=== PATIENT | female | born 1945 | race Caucasian/White ===

== ENCOUNTER → 2018-01-22 08:42 | Outpatient (CLI) | payer MEDICARE, OTHER, SELFPAY ==
[2018-01-22 10:33] LABS: Cholesterol 225 mg/dL (200); High Density Lipoprotein 57 mg/dL; Thyroid Stim Hormone (TSH) 1.51 uIU/mL (0.358-3.74); Triglycerides 139 mg/dL; Very Low Density Lipoprotein 28 mg/dL (5-40)
[2018-01-23 13:12] LABS: AST(SGOT) 21 U/L (15-37); Alanine Aminotransfer ALT/SGPT 24 U/L (13-56); Alkaline Phosphatase 79 U/L (45-117); Globulin 3.4 g/dL (2.2-4.2); Protein, Total 7.4 g/dL (6.4-8.2)
== END ==
PROVIDERS: Family Provider Family Medicine; PCP Family Medicine; Visit Provider Family Medicine
DX: E78.5 Hyperlipidemia, unspecified (principal)
CPT/HCPCS: 36415; 80061; 80076; 84443

== ENCOUNTER → 2018-03-05 16:52 | Outpatient (CLI) | payer MEDICARE, OTHER, SELFPAY ==
--- NOTE | 2018-03-05 16:55 | RAD_ITS ---
STUDY: X-RAY CHEST REASON FOR EXAM: Female, 72 years old. Uterine neoplasm TECHNIQUE: PA and lateral views of the chest. COMPARISON: None. FINDINGS: Postoperative changes of the left breast. There is hyperinflation of the lungs consistent with chronic obstructive lung disease (COPD). There is no demonstrated pleural abnormality. Normal size heart. Normal mediastinum and jermaine. Normal visualized pulmonary arteries. Normal visualized aortic arch and descending thoracic aorta. There is demineralization of the osseous structures. Normal visualized ribs, clavicles, and shoulders. There is no demonstrated abnormality of the visualized soft tissue structures of the upper abdomen. RAD/Chest PA and Lateral IMPRESSION: Degenerative changes, as described above. No demonstrated acute cardiopulmonary process. Electronically Signed: Srinivas Munoz MD at 21:00 EDT , Service support ,
== END ==
PROVIDERS: Family Provider Family Medicine; PCP Family Medicine; Visit Provider Obstetrics & Gynecology
DX: C55 Malignant neoplasm of uterus, part unspecified (principal); C50.919 Malignant neoplasm of unspecified site of unspecified female breast
CPT/HCPCS: 71046

== ENCOUNTER 2018-06-04 07:52 | Outpatient (RCR) | payer MEDICARE, OTHER, SELFPAY ==
--- NOTE | 2018-06-10 08:58 | HP.OTEVAL ---
Patient's Visit Information CHANELLE IGLESIAS is a 72 year old F, referred to Occupational Therapy by Mariama Patel, with a diagnosis of Primary Osteoarthritis, RT and LT hand. Date of Evaluation: 06/04/18 Occupational Therapist: Symone Chapman, OTR/L, CHT - Subjective Subjective: pt. states that she is here for eval for OA of both the L and R hands, and wants any recommendations for OA. Pt. states that she has been modifying tasks as needed, in order to be functional in her BADL's and IADL's, however, she wanted to make sure that there were not other options that she has not considered yet. - Pain R and L hands 2 Pain Intensity Range: 2, 3, 4, 5 - Objective Objective/Observation: pt. demo arthritis over the knuckles of each jt. of both the L and R hands. - ROM ROM Comments: R Index: MP, 0/84, PIP: 0/87, DIP: 0/28. R 3rd digit: MP: 0/90, PIP: 0/100, DIP: 0/54. R 4th digit: MP: 0/80, PIP: 0/110, DIP: 0/25. R 5th digit: MP: 0/90, PIP: 0/74, DIP: 0/35. R Thumb: MP: 0/37, IP: 0/69. L Index: MP: 0/73, PIP: 0/104, DIP: 0/53. L 3rd digit: MP: 0/77, PIP: 0/95, DIP: 0/60. L 4th digit: MP 0/87, PIP: 0/69, DIP: 0/15. L 5th digit: MP 0/89, PIP: 0/69, DIP: DIP: 0/4. L Thumb: MP: 0/38, IP: 0/45 - Strength Binder Folder Operator: 45 # of R and 39 # in L Lateral Pinch: 14 # in R and 13 # in L Tripod Pinch: 15 # in R and 15 # in L - DASH-Disabilities of Arm, Shoulder& Hand DASH Sum: 44 - Hand/Wrist Evaluation Total Score of Pain & Functional Sections: 24 - Goals Goal:: Patient will report recognizing when tasks will cause a significant increase in pain, in order to manage workload to functionally engage in other BADL?s and IADL?s with a tolerable pain level. Goal:: Patient will demo understanding of joint protection and ECM recommendations for increase I with BADL?s and IADL?s. Goal:: Patient will demo follow through with the use of home modalities for pain management for increased ability to complete BADL's and IADL's. Goal:: Patient will demo understanding of the ring splints for support when completing BADL?s and IADL?s. - Rehabilitation General Assessment: Patient presents with Primary Osteoarthritis of the RT and LT hands. Patient demo decreased ROM, strength, increased pain and decreased ability to complete BADL's and IADL's. Patient unsure at this time if she wants to recieve tx, d/t pt. modifying functional tasks as needed within her daily life. Today, OT educated pt. about joint protection and ECM that she can follow in her daily life. Additionally, OT educated pt. about ring supports that pt. can wear for lateral support. Following the education,OT provided PB ti increase circulation and decrease pain. Following the PB, OT provided MT to decrease pain/stiffness. Rehabilitation Potential: Good - Anticipated Interventions Anticipated Interventions: A/AAROM/PROM, Strengthening, Triggerpoint Release, Modalities, Orthoses, Joint Protection/Energy Conservation, Ergonomic Education, ADL Training, Home Program - Visit Plan Frequency: PRN within the next month Duration: PRN within the next month TEXT: Thank you for the opportunity to evaluate your patient. For Medicare and Medicare HMO plans, please review the plan of care and approve it. It will need to be FAXED BACK to us at [phone] for Medicare purposes. Please let me know if there are questions or concerns regarding this plan of care. Physician Signature: Date:
--- NOTE | 2018-11-24 08:31 | HP.OT.NRP ---
HP - Discharge Summary - Patient Information CHANELLE IGLESIAS was seen in my office for initial evaluation on 06/04/18. The following Plan of Care was established for this patient: Initial Frequency: PRN within the next month Initial Duration: PRN within the next month - Anticipated Interventions Anticipated Interventions: A/AAROM/PROM, Strengthening, Triggerpoint Release, Modalities, Orthoses, Joint Protection/Energy Conservation, Ergonomic Education, ADL Training, Home Program This patient was last seen in our office 06/04/19. Pertinent comments regarding their Occupational therapy will appear below: pt was seen for inital eval only. Due to time-lapse in services pt D/C at this time. At this point I will be discontinuing this patient from occupational therapy. I would be happy to see this patient again in the future if found appropriate by the physician. Thank you! Symone Chapman, OTR/L, CHT
== END 2018-06-04 19:00 | disposition home or self-care (01) ==
LOC: OT 07:52
PROVIDERS: Family Provider Family Medicine; PCP Family Medicine; Referring Provider Physician Assistant; Visit Provider Physician Assistant
DX: M19.041 Primary osteoarthritis, right hand (principal); M19.042 Primary osteoarthritis, left hand
CPT/HCPCS: 97140; 97166

== ENCOUNTER → 2019-01-25 | Outpatient (CLI) | payer MEDICARE, OTHER, SELFPAY ==
[2018-09-02 11:58] VITALS: BMI 25.4
[2019-01-25 12:59] LABS: Cholesterol 194 mg/dL (200); High Density Lipoprotein 51 mg/dL; Triglycerides 203 mg/dL; Very Low Density Lipoprotein 41 mg/dL (5-40)
== END | disposition home or self-care (01) ==
LOC: BFHLAB 09:24
PROVIDERS: Family Provider Family Medicine; PCP Family Medicine; Visit Provider Family Medicine
DX: E78.5 Hyperlipidemia, unspecified (principal)
CPT/HCPCS: 36415; 80061; 84443

== ENCOUNTER → 2019-07-29 10:03 | Outpatient (CLI) | payer MEDICARE, OTHER, SELFPAY ==
[2018-09-02 11:58] VITALS: BMI 25.4
--- NOTE | 2019-07-29 10:35 | RAD_ITS ---
STUDY: X-RAY CHEST REASON FOR EXAM: Female, 73 years old. Dry cough times several months, history of breast cancer TECHNIQUE: PA and lateral views of the chest. COMPARISON: Prior study of 03/05/2018 FINDINGS: The lungs are clear and expanded. There is no demonstrated pleural abnormality. Normal size heart. Normal mediastinum and jermaine. Normal visualized pulmonary arteries. There are calcified plaques of the aortic arch. Normal visualized thoracic spine. Normal visualized ribs, clavicles, and shoulders. Surgical clips are seen in the left breast. RAD/Chest PA and Lateral IMPRESSION: Calcified plaques in the aortic arch. Surgical clips seen in the left breast. No acute cardiopulmonary disease process is seen. Chest findings are stable in the interval. Electronically Signed: Gustavo Diaz MD at 21:34 EST , Service support ,
== END ==
PROVIDERS: Family Provider Family Medicine; PCP Family Medicine; Referring Provider Family Medicine; Visit Provider Family Medicine
DX: R05 Cough (principal)
CPT/HCPCS: 71046

== ENCOUNTER → 2020-01-17 | Outpatient (CLI) | payer MEDICARE, OTHER, SELFPAY ==
[2019-09-16 13:33] VITALS: BMI 25.4
--- NOTE | 2020-01-17 10:20 | US_ITS ---
STUDY: ABDOMINAL ULTRASOUND REASON FOR EXAM: Female, 74 years old. LUQ PAIN/ CHEST PAIN TECHNIQUE: Transabdominal ultrasound was performed with real-time and static marks scale imaging. TECHNICAL QUALITY: Adequate. COMPARISON: None. FINDINGS: Liver: The liver measures 12.8 cm. There is normal echogenicity of the liver. The bile ducts are within normal limits. There is hepatic color flow. The direction of portal flow is hepatopetal. There is no demonstrated mass lesion. Portal vein measurement: Gallbladder: The patient is status post cholecystectomy. Common Bile Duct (C.B.D.): The common bile duct measures 5 mm. Pancreas: Normal size of the head, body and tail of the pancreas. There is normal echogenicity of the pancreas. There is no demonstrated pancreatic mass or cyst. Spleen: Normal size of the spleen. The spleen measures 7.7 cm x 3.4 cm x 3.6 cm. Right Kidney: Normal size of the right kidney. The right kidney measures 9.3 cm x 4.7 cm x 3.6 cm. Normal renal cortex. The right cortex measures 1.4 cm. There is no demonstrated renal mass or cyst. There is no right hydronephrosis. Left Kidney: Normal size of the left kidney. The left kidney measures 9.4 cm x 4.3 cm x 4.1 cm. Normal renal cortex. The left cortex measures 1.5 cm. There is no demonstrated renal mass or cyst. There is no left hydronephrosis. Aorta: Unremarkable I.V.C.: The IVC is patent. There is no ascites. US/Abdomen Complete IMPRESSION: Normal abdominal ultrasound examination. The patient is status post cholecystectomy. Electronically Signed: Satnam Chaves, at 15:02 EDT , Service support ,
== END | disposition home or self-care (01) ==
LOC: US 10:17
PROVIDERS: PCP Family Medicine; Referring Provider Family Medicine; Visit Provider Family Medicine
DX: R10.12 Left upper quadrant pain (principal); R07.89 Other chest pain
CPT/HCPCS: 76700

== ENCOUNTER → 2020-01-19 12:13 | Outpatient (CLI) | payer MEDICARE, OTHER, SELFPAY ==
[2020-01-19 11:26] VITALS: BMI 23.9
[2020-01-19 13:44] LABS: AST(SGOT) 16 U/L (15-37); Alanine Aminotransfer ALT/SGPT 20 U/L (13-56); Alkaline Phosphatase 85 U/L (45-117); Bilirubin, Direct 0.11 mg/dL (0.00-0.30); Cholesterol 224 mg/dL (200); Globulin 3.8 g/dL (2.2-4.2); High Density Lipoprotein 51 mg/dL; Protein, Total 7.8 g/dL (6.4-8.2); Triglycerides 311 mg/dL; Very Low Density Lipoprotein 62 mg/dL (5-40)
== END ==
PROVIDERS: PCP Family Medicine; Visit Provider Internal Medicine Cardiovascular Disease
DX: E78.00 Pure hypercholesterolemia, unspecified (principal); R07.9 Chest pain, unspecified; E78.5 Hyperlipidemia, unspecified; M81.0 Age-related osteoporosis without current pathological fracture; C50.919 Malignant neoplasm of unspecified site of unspecified female breast; C55 Malignant neoplasm of uterus, part unspecified
CPT/HCPCS: 36415; 80061; 80076

== ENCOUNTER → 2020-01-24 06:23 | Outpatient (CLI) | payer MEDICARE, OTHER, SELFPAY ==
[2020-01-19 11:26] VITALS: BMI 23.9
--- NOTE | 2020-01-24 06:24 | ECHOD_ITS ---
Reason For Study: CP Procedure This was a 2D Doppler, Color Flow transthoracic echocardiogram. Exam performed in department. Left Ventricle Normal LV size. Left ventricular systolic function is normal. The estimated ejection fraction is 60 %. Stage 2 diastolic dysfunction. No regional wall motion abnormalities noted. Right Ventricle Normal RV size. Normal systolic function. Atria Normal left atrium. Normal right atrium. Mitral Valve Normal mitral valve. Mild (1+) eccentric mitral valve insufficiency. Tricuspid Valve Normal tricuspid valve. Mild (1+) tricuspid valve insufficiency. Pulmonary artery systolic pressure is 24 mmHg. Aortic Valve Normal aortic valve. Trisinus/trileaflet aortic valve. Pulmonic Valve Normal pulmonic valve. Great Vessels Normal aortic root. The pulmonary artery is normal size. Normal inferior vena cava. Pericardium/Pleural No pericardial effusion. MMode/2D Measurements & Calculations LVIDd: 4.1 cm IVSd: 0.92 cm LA dimension: 3.3 cm LVIDs: 2.3 cm LVPWd: 0.88 cm RVDd: 3.2 cm FS: 44.0 % LAV(MOD-bp): 41.7 ml LA A4 area: 16.2 cm2 RA A4 area: 10.7 cm2 LAV(MOD-bp) Indexed: 24.2 ml/m2 LAV(MOD-sp2): 36.2 ml LAV(MOD-sp4): 44.3 ml Time Measurements MV dec time: 0.22 sec Doppler Measurements & Calculations MV E max jose enrique: 60.4 cm/sec Lat Peak E' Jose Enrique: 5.7 cm/sec Med Peak E' Jose Enrique: 4.8 cm/sec MV A max jose enrique: 77.8 cm/sec E/E' lat: 10.6 E/E' med: 12.5 MV E/A: 0.78 MV V2 max: 82.8 cm/sec MV P1/2t max jose enrique: 55.0 cm/sec Ao V2 max: 134.9 cm/sec MV max P.7 mmHg MV P1/2t: 51.9 msec Ao max P.3 mmHg MV V2 mean: 41.1 cm/sec MV dec slope: 310.6 cm/sec2 MV mean P.82 mmHg MVA(P1/2t): 4.2 cm2 MV V2 VTI: 16.6 cm LV V1 max: 84.6 cm/sec MR max jose enrique: 507.3 cm/sec PA V2 max: 99.2 cm/sec LV V1 max P.9 mmHg MR max P.9 mmHg TR max jose enrique: 228.6 cm/sec TR max P.9 mmHg Interpretation Summary Normal LV size. Left ventricular systolic function is normal. The estimated ejection fraction is 60 %. Stage 2 diastolic dysfunction. Mild (1+) eccentric mitral valve insufficiency. Pulmonary artery systolic pressure is 24 mmHg. Ordering Physician: Eleuterio Cano Referring Physician: Tommie Crews Performed By: Jesse Luke RCS
--- NOTE | 2020-01-24 11:18 | STRESSREP_ITS ---
Stress Test Report 74-year-old lady with a history of chest pain status post breast carcinoma. Stress protocol: Resting EKG demonstrates sinus rhythm with a rate of 75 bpm normal intervals are noted resting blood pressure is 112/68 mmHg. The patient exercised according to regular Sam protocol for a total duration of 9 minutes. Patient completed stage III of the Sam protocol. The maximum heart rate was 166 bpm which was 112% of maximum predicted heart rate the maximum workload was 10.1 metabolic equivalents. Patient maintained sinus rhythm throughout the recording with occasional premature ventricular complexes noted. The test was terminated due to the target heart rate being achieved. There was mild chest discomfort noted. At rest and during peak exercise there were no ST or T wave changes noted to suggest ischemia. The maximum blood pressure was 160/60 mmHg with a rate- pressure product was 26,500. Myocardial perfusion protocol. 11.0 mCi of technetium 99m sestamibi was injected at rest. The patient exercised according to regular Sam protocol for 9 minutes at peak exercise 33.0 mCi of technetium 99m sestamibi was injected stress images were obtained stress and rest images were reconstructed and compared in the short axis vertical long horizontal long axis. Gated images were also obtained per Perfusion SPECT analysis: Review of the stress images demonstrate normal uptake of tracer noted in all areas of the myocardium the resting images similarly demonstrate normal uptake of tracer noted in all areas of the myocardium. No reversibility is noted suggest ischemia no previous infarct is noted. Gated SPECT analysis: The gated ejection fraction is 62%. Occlusion: Normal exercise myocardial perfusion stress test at a high workload. Preserved ejection fraction.
== END ==
PROVIDERS: PCP Family Medicine; Referring Provider Internal Medicine Cardiovascular Disease; Visit Provider Internal Medicine Cardiovascular Disease
DX: R07.9 Chest pain, unspecified (principal); I25.10 Atherosclerotic heart disease of native coronary artery without angina pectoris
CPT/HCPCS: 78452; 93017; 93306; A9500

== ENCOUNTER → 2020-02-17 08:52 | Outpatient (CLI) | payer MEDICARE, OTHER, SELFPAY ==
[2020-01-19 11:26] VITALS: BMI 23.9
[2020-02-17 12:52] LABS: Absolute Lymphocyte Count 1.89 X10^3/uL (0.83-4.51); Absolute Neutrophil Count 2.6 X10^3/uL (2.0-7.7); Basophil# 0.05 X10^3/uL; Eosinophil# 0.16 X10^3/uL; Eosinophils% 3.1 % (0-5); Hematocrit 42.1 % (37-47); Lymphocyte # 1.89 X10^3/ul (4.0); Lymphocyte % 36.1 % (19-41); Mean Corp Hgb Conc 30.9 g/dL (32-36); Mean Corpuscular Hgb 27.4 pg (27.0-32.0); Mean Corpuscular Volume 88.8 fL (81-99); Mean Platelet Vol. 10.6 fl (6.2-12.0); Monocyte# 0.54 X10^3/uL; Monocyte% 10.3 % (0-10); NRBC Flagged by Analyzer 0 % (0-5); Neutrophil # 2.58 X10^3/uL (2.7-7.7); Neutrophil % 49.3 % (47-70); Platelet Count 279 K/mm3 (150-450); RBC Distribution Width CV 12.6 % (11.6-14.6); RBC Distribution Width SD 41.4 fl (35.1-43.9); Red Blood Count 4.74 M/mm3 (4.2-5.4); White Blood Count 5.2 K/mm3 (4.4-11.0)
[2020-02-17 13:13] LABS: Anion Gap 6 (5-15); BUN 14 mg/dL (7-18); BUN/Creat Ratio 17.1 RATIO (10-20); Calcium,Total 8.8 mg/dL (8.5-10.1); Chloride 103 mmol/L (98-107); Creatinine, Serum 0.82 mg/dL (0.55-1.02); EST Glomerular Filtration Rate 73 mL/min (>60); Est Glom Filt Rate - Afr Amer 88 mL/min (>60); Glucose 84 mg/dL (74-106); Potassium 4.1 mmol/L (3.5-5.1); Sodium Level 139 mmol/L (136-145); T4 Free Direct 0.97 ng/dL (0.76-1.46); Thyroid Stim Hormone (TSH) 1.57 uIU/mL (0.358-3.74)
== END ==
PROVIDERS: PCP Family Medicine; Visit Provider Family Medicine
DX: E78.5 Hyperlipidemia, unspecified (principal); Z51.81 Encounter for therapeutic drug level monitoring; D72.821 Monocytosis (symptomatic)
CPT/HCPCS: 36415; 80048; 84439; 84443; 85025

== ENCOUNTER 2020-05-03 10:15 | Emergency (ER) | payer MEDICARE, OTHER, SELFPAY ==
[2020-01-19 11:26] VITALS: BMI 23.9
[2020-05-03 10:16] VITALS: BP 157/92; PULSE 83; RESP 16; TEMP 36.1; O2SAT 98; BMI 24.0
--- NOTE | 2020-05-03 10:37 | RAD_ITS ---
STUDY: X-RAY CHEST REASON FOR EXAM: Female, 74 years old. Sudden onset CP prior to arrival TECHNIQUE: Single AP portable view of the chest. COMPARISON: Comparison is made with prior study dated 07/29/2019. FINDINGS: EKG electrodes are seen. Surgical clips are seen overlying the left breast. Hyperinflation. The lungs are clear. There is no demonstrated pleural abnormality. Normal size heart. Normal mediastinum and jermaine. Normal visualized pulmonary arteries. There is atherosclerotic calcification of the aortic arch with tortuosity. There are diffuse degenerative changes of the visualized thoracic spine. Normal visualized ribs, clavicles, and shoulders. There is no demonstrated abnormality of the visualized soft tissue structures of the upper abdomen. RAD/Chest 1 View (Portable) IMPRESSION: Hyperinflation. No acute abnormality is seen. Electronically Signed: Satnam Chaves, at 11:52 EDT , Service support ,
--- NOTE | 2020-05-03 10:37 | EKG12_ITS ---
Test Reason : CP Blood Pressure : / mmHG Vent. Rate : 073 BPM Atrial Rate : 073 BPM P-R Int : 130 ms QRS Dur : 092 ms QT Int : 374 ms P-R-T Axes : 060 048 059 degrees QTc Int : 412 ms Normal sinus rhythm Normal ECG Confirmed by VAISHNAVI ROSE, REBECCA ([id number]), associate editor CHRISTIAN RIVERA ([id number]) on 05/05/2020 1:07:06 PM Referred By: Confirmed By:REBECCA RIGGINS MD
--- NOTE | 2020-05-03 10:44 | ED.DCSUM_ITS ---
History of Present Illness Chief Complaint: Chest Pain Informant: Patient Narrative: Presents to the emergency department for the evaluation of chest pain. Patient states this morning she had a sudden onset of left chest pain just underneath the left breast described as a sharp pressure. It radiated to the right and into her jaw. Lasted about 40 minutes and then resolved. Patient states she has had this intermittently in the past but it continues to get longer in duration. In January she had a echocardiogram and stress test did not show an obvious cause for her pain. The patient has had radiation to that area in the past due to breast cancer. She takes omeprazole and has had EGD in the past but not since the symptoms have occurred. She states that in between the episodes she feels fine. She is quite active. Retired nurse practitioner. - Past Medical History (1) Adenosarcoma of uterus Status: Chronic Comment: [address] ceja every other visit. CXR annually and q 6 month exams until 5 years post treatment (2) Breast cancer Status: Chronic Comment: Left breast partial mastectomy w/ radiation 2009, Left Breast HER2 non-overexpressed left breast 12/2019 (3) Chronic diastolic heart failure Status: Chronic (4) Hyperlipidemia Status: Chronic (5) Osteoporosis Status: Chronic Comment: Worsening-10/05/19 Past Medical History - Allergies and Home Meds Allergies/Adverse Reactions: Allergies chlorthalidone [From [place]] Adverse Reaction (Verified 05/03/20 10:15) Rash prednisone Adverse Reaction (Verified 05/03/20 10:15) Other Primary Care Physician: Tommie Cerws MD [Primary Care Provider] - Smoking Status: Never smoker Review of Systems General: Denies: Chills, Fever, Sweats Eyes: Denies: Visual changes - bilaterally, Diplopia ENT: Denies: Rhinorrhea, Sore throat Cardiovascular: Reports: Chest pain. Denies: Palpitations Respiratory: Denies: Dyspnea, Cough, Dyspnea on exertion Gastrointestinal: Denies: Abdominal pain, Nausea, Vomiting, Diarrhea, Melena, Hematochezia Genitourinary: Denies: Dysuria, Hematuria, Frequency Musculoskeletal: Denies: Back pain, Extremity Pain Skin: Denies: Rash, Wounds Neurological: Denies: Headache, Weakness, Numbness Physical Exam Vital Signs/Narrative: Vital Signs Temp Pulse Resp BP Pulse Ox 05/03/20 10:16 97 F L 83 16 157/92 H 98 Inital Vital Signs reviewed: Yes General: Well nourished, Well developed, No Acute Distress Head: Normocephalic, Atraumatic Eyes: Perrl, EOMI ENT: Moist mucous membranes, No rhinorrhea Neck: Supple, Nontender Cardiovascular: Regular rate, Regular rhythm, No murmurs Respiratory: No distress, CTA bilaterally, Chest nontender Abdomen: Soft, Nontender, Nondistended, Normal bowel sounds Back: Nontender, Normal Inspection Extremities: Nontender, No edema Skin: Normal color, No rash Neurological: Alert, Oriented x3, Cranial nerves II-XII grossly intact, Normal Strength, Normal Sensation Psychological: Normal affect, Normal Mood Diagnostic/Tx/Re-eval Clinical Impression(s) from Imaging Studies Chest X-Ray 05/03/20 10:37 IMPRESSION: Hyperinflation. No acute abnormality is seen. Electronically Signed: Satnam Alejandracarinaclarence, at 11:52 EDT , Service support , Laboratory Last Values WBC 5.9 K/mm3 (4.4-11.0) 05/03/20 10:16 RBC 4.68 M/mm3 (4.2-5.4) 05/03/20 10:16 Hgb 12.8 g/dL (12.0-15.0) 05/03/20 10:16 Hct 41.4 % (37-47) 05/03/20 10:16 MCV 88.5 fL (81-99) 05/03/20 10:16 MCH 27.4 pg (27.0-32.0) 05/03/20 10:16 MCHC 30.9 g/dL (32-36) L 05/03/20 10:16 RDW Std Deviation 41.4 fl (35.1-43.9) 05/03/20 10:16 RDW Coeff of Naif 12.8 % (11.6-14.6) 05/03/20 10:16 Plt Count 283 K/mm3 (150-450) 05/03/20 10:16 MPV 9.7 fl (6.2-12.0) 05/03/20 10:16 Immature Gran % (Auto) 0.300 % (0.0-0.9) 05/03/20 10:16 Neut % (Auto) 49.5 % (47-70) 05/03/20 10:16 Lymph % (Auto) 36.9 % (19-41) 05/03/20 10:16 [place] % (Auto) 10.4 % (0-10) H 05/03/20 10:16 Eos % (Auto) 2.0 % (0-5) 05/03/20 10:16 Baso % (Auto) 0.9 % (0-1) 05/03/20 10:16 Absolute Neuts (auto) 2.9 X10^3/uL (2.0-7.7) 05/03/20 10:16 Absolute Lymphs (auto) 2.16 X10^3/uL (0.83-4.51) 05/03/20 10:16 Nucleated RBC % 0 % (0-5) 05/03/20 10:16 Sodium 138 mmol/L (136-145) 05/03/20 10:16 Potassium 4.3 mmol/L (3.5-5.1) 05/03/20 10:16 Chloride 103 mmol/L (98-107) 05/03/20 10:16 Carbon Dioxide 32.0 mmol/L (21.0-32.0) 05/03/20 10:16 Anion Gap 3 (5-15) L 05/03/20 10:16 BUN 12 mg/dL (7-18) 05/03/20 10:16 Creatinine 0.70 mg/dL (0.55-1.02) 05/03/20 10:16 Estim Creat Clear Calc 43.27 ml/min 05/03/20 10:16 Est GFR (MDRD) Af Amer 106 mL/min (>60) 05/03/20 10:16 Est GFR (MDRD) Non-Af 88 mL/min (>60) 05/03/20 10:16 BUN/Creatinine Ratio 17.2 RATIO (10-20) 05/03/20 10:16 Glucose 92 mg/dL (74-106) 05/03/20 10:16 Calcium 9.1 mg/dL (8.5-10.1) 05/03/20 10:16 Magnesium 2.2 mg/dL (1.6-2.6) 05/03/20 10:16 Troponin I < 0.015 ng/mL (<0.045) 05/03/20 13:11 - EKG Initial EKG Interpretation: Sinus Rhythm - EKG shows a normal sinus rhythm at a rate of 73 without ectopy. - Medical Decision Making EKG shows no concerning features. 2 sets of cardiac enzymes are negative. Believe the patient to be low risk on the heart score and can be safely discharged. Case was discussed with on-call cardiology Dr. Cano. Patient is comfortable with this plan. ED Disposition - Plan for ED Patient: Disposition: Home or Assisted Living Diagnosis: Chest pain Instructions: ED Chest Pain Atypical Unkn Cause Referrals: Eleuterio Cano MD [STAFF PHYSICIAN] - (call to arrange follow up)
[2020-05-03 11:00] LABS: Absolute Lymphocyte Count 2.16 X10^3/uL (0.83-4.51); Absolute Neutrophil Count 2.9 X10^3/uL (2.0-7.7); Basophil# 0.05 X10^3/uL; Basophil% 0.9 % (0-1); Eosinophil# 0.12 X10^3/uL; Hematocrit 41.4 % (37-47); Hemoglobin 12.8 g/dL (12.0-15.0); Lymphocyte # 2.16 X10^3/ul (4.0); Lymphocyte % 36.9 % (19-41); Mean Corp Hgb Conc 30.9 g/dL (32-36); Mean Corpuscular Hgb 27.4 pg (27.0-32.0); Mean Corpuscular Volume 88.5 fL (81-99); Mean Platelet Vol. 9.7 fl (6.2-12.0); Monocyte# 0.61 X10^3/uL; Monocyte% 10.4 % (0-10); NRBC Flagged by Analyzer 0 % (0-5); Neutrophil % 49.5 % (47-70); Platelet Count 283 K/mm3 (150-450); RBC Distribution Width CV 12.8 % (11.6-14.6); RBC Distribution Width SD 41.4 fl (35.1-43.9); Red Blood Count 4.68 M/mm3 (4.2-5.4); White Blood Count 5.9 K/mm3 (4.4-11.0)
[2020-05-03 11:19] LABS: Anion Gap 3 (5-15); BUN 12 mg/dL (7-18); BUN/Creat Ratio 17.2 RATIO (10-20); Calcium,Total 9.1 mg/dL (8.5-10.1); Chloride 103 mmol/L (98-107); EST Glomerular Filtration Rate 88 mL/min (>60); Est Glom Filt Rate - Afr Amer 106 mL/min (>60); Estimated Creatinine Clearance 43.27 ml/min; Glucose 92 mg/dL (74-106); Magnesium 2.2 mg/dL (1.6-2.6); Potassium 4.3 mmol/L (3.5-5.1); Sodium Level 138 mmol/L (136-145)
[2020-05-03 12:06] VITALS: PULSE 76; RESP 11; O2SAT 96
[2020-05-03 13:25] VITALS: PULSE 87; RESP 13; O2SAT 96
[2020-05-03 14:01] VITALS: BP 159/69; PULSE 86; RESP 14; O2SAT 98
== END 2020-05-03 14:02 | disposition home or self-care (01) ==
PROVIDERS: Emergency Provider Emergency Medicine; PCP Family Medicine
DX: R07.89 Other chest pain (principal); E78.5 Hyperlipidemia, unspecified; I50.32 Chronic diastolic (congestive) heart failure; M81.0 Age-related osteoporosis without current pathological fracture; Z85.3 Personal history of malignant neoplasm of breast; Z92.3 Personal history of irradiation; Z79.82 Long term (current) use of aspirin; Z79.899 Other long term (current) drug therapy
CPT/HCPCS: 71045; 80048; 83735; 84484; 85025; 93005; 99284; A4216

== ENCOUNTER → 2020-06-16 10:25 | Outpatient (CLI) | payer MEDICARE, OTHER, SELFPAY ==
[2020-05-17 13:01] VITALS: BMI 23.6
== END ==
PROVIDERS: PCP Family Medicine; Referring Provider Family Medicine; Visit Provider Family Medicine
DX: Z20.828 Contact with and (suspected) exposure to other viral communicable diseases (principal)
CPT/HCPCS: 87635; C9803; U0003

== ENCOUNTER → 2021-03-26 09:08 | Outpatient (CLI) | payer MEDICARE, OTHER, SELFPAY ==
[2020-09-18 10:09] VITALS: BMI 24.3
--- NOTE | 2021-03-26 09:18 | RAD_ITS ---
STUDY: X-RAY CHEST REASON FOR EXAM: Female, 75 years old. Persistent dry cough. TECHNIQUE: Frontal and lateral views of the chest. COMPARISON: None. FINDINGS: The lungs are clear and expanded. There is no demonstrated pleural abnormality. Normal size heart. Normal mediastinum and jermaine. Normal visualized pulmonary arteries. Normal visualized aortic arch and descending thoracic aorta. Normal visualized thoracic spine. Normal visualized ribs, clavicles, and shoulders. Clips projected over the left breast unchanged. RAD/Chest PA and Lateral IMPRESSION: Stable chest with no acute finding. Electronically Signed: Jeramy Martini MD at 9:19 EDT , Service support ,
== END ==
PROVIDERS: PCP Family Medicine; Referring Provider Family Medicine; Visit Provider Family Medicine
DX: R05 Cough (principal)
CPT/HCPCS: 71046

== ENCOUNTER → 2021-06-21 15:27 | Outpatient (CLI) | payer MEDICARE, OTHER, SELFPAY ==
--- NOTE | 2021-06-21 15:46 | EKG12_ITS ---
Test Reason : PRE OP Blood Pressure : / mmHG Vent. Rate : 082 BPM Atrial Rate : 082 BPM P-R Int : 106 ms QRS Dur : 090 ms QT Int : 352 ms P-R-T Axes : -03 041 062 degrees QTc Int : 411 ms Sinus rhythm with short ND Otherwise normal ECG Confirmed by MELODY ROSE, SANDRINE ([id number]), editor school photograph CHRISTIAN RIVERA ([id number]) on 06/22/2021 6:53:10 AM Referred By: Jeramy Curtis Confirmed By:SANDRINE OLIVER MD
--- NOTE | 2021-06-21 16:01 | CT_ITS ---
STUDY: CT SCAN LOWER EXTREMITY LEFT. [facility] protocol. REASON FOR EXAM: Female, 75 years old. UNILATERAL PRIMARY OSTEOARTHRITIS, L KNEE RADIATION DOSAGE (If Supplied By Facility): CTDIvol = ( 18.50 ) mGy, DLP = ( 1123.47 ) mGycm. Individualized dose optimization techniques were used for this CT.? TECHNIQUE: Multiple axial tomographic images of the left hip joint, left knee joint and left ankle joint were obtained. Coronal and sagittal reconstruction was obtained as well. COMPARISON: None. FINDINGS: Imaging of the left hip joint was obtained. No significant abnormality is seen. Imaging of the right knee joint was obtained. There is a marked degree of joint space narrowing involving the medial compartment of knee joint evidence of degenerative spur formation. No significant joint effusion is seen. Imaging of the ankle joint was obtained. No abnormality is seen. CT/Extremity Lower without Contra IMPRESSION: Moderate degree of joint space narrowing involving the medial compartment of knee joint with evidence of degenerative spur formation. Electronically Signed: Satnam Chaves MD at 9:52 EST , Service support ,
[2021-06-21 16:10] LABS: Hematocrit 39.8 % (37-47); Hemoglobin 12.8 g/dL (12.0-15.0); Mean Corp Hgb Conc 32.2 g/dL (32-36); Mean Corpuscular Volume 87.1 fL (81-99); Mean Platelet Vol. 9.7 fl (6.2-12.0); Platelet Count 283 K/mm3 (150-450); RBC Distribution Width CV 12.1 % (11.6-14.6); RBC Distribution Width SD 38.6 fl (35.1-43.9); Red Blood Count 4.57 M/mm3 (4.2-5.4); White Blood Count 7.1 K/mm3 (4.4-11.0)
[2021-06-21 16:34] LABS: Anion Gap 5 (5-15); BUN 17 mg/dL (7-18); BUN/Creat Ratio 14.4 RATIO (10-20); Calcium,Total 8.7 mg/dL (8.5-10.1); Chloride 101 mmol/L (98-107); Creatinine, Serum 1.18 mg/dL (0.55-1.02); EST Glomerular Filtration Rate 48 mL/min (>60); Est Glom Filt Rate - Afr Amer 58 mL/min (>60); Glucose 98 mg/dL (74-106); Hemoglobin A1c 5.7 % (3.8-5.6); Potassium 4.7 mmol/L (3.5-5.1); Sodium Level 137 mmol/L (136-145)
== END ==
PROVIDERS: PCP Family Medicine; Referring Provider Physician Assistant; Visit Provider Physician Assistant
DX: Z01.818 Encounter for other preprocedural examination (principal); Z01.810 Encounter for preprocedural cardiovascular examination; M17.12 Unilateral primary osteoarthritis, left knee
CPT/HCPCS: 36415; 73700; 80048; 83036; 85027; 93005

== ENCOUNTER → 2021-07-04 | Outpatient (CLI) | payer MEDICARE, OTHER, SELFPAY ==
--- NOTE | 2021-07-04 08:30 | KNEE_PTH ---
PATIENT: CHANELLE IGLESIAS [facility] U#:[id number] AGE/SX: 75/F ROOM: RE07/04/[address]: Dr. Sean Tellez DO : 1945 BED: DIS: 07/04/2021 SPEC #: [id number] RECD: 07/04/21 15:07 STATUS: EREN REYuko #: [id number] VANESSA: 07/04/21 08:[address]: Sean Tellez DEPT: SURGICAL PATHOLOGY RECD BY: Mabel Coker ENTERED: 07/06/21 09:01 SP TYPE: TOTAL KNEE OTHR DR: Dr. Tommie Crews MD [facility] Tissues: Knee, NOS Procedures: Decalcification bone/plaque Surgery Specimen Level IV HEADER OPERATION: Robotic assisted left total knee arthroplasty PRE-OP DIAGNOSIS: Unilateral primary osteoarthritis TISSUE SUBMITTED: Bone and soft tissue, left knee MICROSCOPIC DIAGNOSIS Bone and tissue, left knee, total knee replacement/resection: Pieces of bone with degenerative osteoarthritic changes. Fibroadipose tissue, fibroconnective tissue and reactive synovial tissue. EDNA:lorraine 07/10/2021 MICROSCOPIC DESCRIPTION Slides are reviewed. GROSS DESCRIPTION Received is one container designated bone and soft tissue left knee. The specimen consists of multiple fragments of hein-yellow bone measuring in aggregate 10 x 9 x 3.5 cm. Also in the specimen container are multiple fragments of yellow-white soft tissue measuring in aggregate 7 x 7 x 3 cm. A number of bony fragments contain articular surfaces consistent with tibial plateau and femoral condyle and displaying prominent osteophyte formation, eburnation, and bone erosion. Budget Engineer sections are submitted in two cassettes as follows: 1 - soft tissue, 2 - bone after decalcification. / EDNA:lorraine 07/06/21 TC:5 [facility]: [id number], [id number]
== END | disposition home or self-care (01) ==
LOC: LABSPEC 15:35
PROVIDERS: PCP Family Medicine; Visit Provider Orthopaedic Surgery
DX: M17.12 Unilateral primary osteoarthritis, left knee (principal)
CPT/HCPCS: 88305; 88311

== ENCOUNTER 2021-09-09 05:21 | Emergency (ER) | payer MEDICARE, OTHER, SELFPAY ==
[2021-09-09] VITALS (7 sets, daily range): BP systolic 117–152; BP diastolic 69–86; PULSE 93–103; RESP 15–18; TEMP 36.6; O2SAT 95–100; BMI 23.6
--- NOTE | 2021-09-09 05:40 | CT_ITS ---
EXAM: CT ANGIOGRAPHY CHEST, ABDOMEN AND PELVIS WITH INTRAVENOUS CONTRAST CLINICAL INDICATION: abd pain / ? Dissection abd pain / ? Dissection TECHNIQUE: Helically acquired angiography images were obtained of the chest, abdomen and pelvis with intravenous contrast. This CT exam was performed using one or more of the following dose reduction techniques: automated exposure control, adjustment of the mA and/or kV according to patient size, and/or use of iterative reconstruction technique. This report was created using [employer] report generation technology. MIP reconstructed images were created and reviewed. CONTRAST: IV 100mL Isovue-370 COMPARISON: Chest x-ray 03/26/2021. Abdominal ultrasound 01/17/2020. FINDINGS: VASCULATURE: AORTA: There is mild atherosclerotic calcification of the thoracic aorta. There is mild atherosclerotic calcification of the abdominal aorta. Normal in caliber. No dissection. PULMONARY ARTERIES: Unremarkable. Normal in caliber. No obvious central pulmonary embolism although this study was not performed with the pulmonary embolism protocol. GREAT VESSELS OF AORTIC ARCH: Unremarkable. Normal in caliber. No dissection. CELIAC TRUNK AND MESENTERIC ARTERIES: No acute findings. No occlusion or significant stenosis. No dissection. RENAL ARTERIES: No acute findings. No occlusion or significant stenosis. No dissection. ILIAC ARTERIES: No acute findings. No occlusion or significant stenosis. No dissection. CHEST: LUNGS AND PLEURAL SPACES: As seen on series 2, axial image 84, there is a 3 mm noncalcified right middle lobe lung nodule. No pleural effusion or thickening. No pneumothorax. HEART: Unremarkable. Heart size is normal. No pericardial effusion. MEDIASTINUM: Unremarkable. No mediastinal or hilar adenopathy. Esophagus is unremarkable. No hiatal hernia. THYROID: Unremarkable. No thyroid lesions. ABDOMEN: LIVER: There is a small cyst in the left lobe of the liver. GALLBLADDER AND BILE DUCTS: The gallbladder is absent, consistent with prior cholecystectomy. No intra- or extrahepatic biliary ductal dilation. PANCREAS: Unremarkable. No focal cystic or solid mass. SPLEEN: Unremarkable. Normal size without focal cystic or solid mass. ADRENALS: Unremarkable. No nodules. KIDNEYS AND URETERS: There is a simple appearing right renal cyst. No follow-up imaging is necessary for simple renal cysts or cysts that are too small to characterize. Normal renal size and position. No hydronephrosis. STOMACH AND BOWEL: There are colonic diverticula. No stomach or bowel distention. No focal inflammatory change. PELVIS: APPENDIX: A normal-appearing appendix is seen on axial images 190-201. BLADDER: Unremarkable. REPRODUCTIVE: The uterus is absent, consistent with a prior hysterectomy. CHEST, ABDOMEN and PELVIS: INTRAPERITONEAL SPACE: Unremarkable. No ascites or other fluid collection. No free air. BONES/JOINTS: There are multilevel degenerative changes in the thoracic and lumbar spines. No suspicious lytic or blastic abnormality. SOFT TISSUES: Unremarkable. No discrete abdominal or pelvic wall hernia. LYMPH NODES: Unremarkable. No enlarged lymph nodes. CT/CTA Chst, Abd, Pel W and/or WO IMPRESSION: 1. No evidence for pulmonary embolism, aortic aneurysm, or aortic dissection. 2. No evidence for arterial aneurysm, dissection, or stenosis in the abdomen or pelvis. 3. Mild atherosclerosis.. 4. Previous cholecystectomy and hysterectomy. 5. Colonic diverticulosis, without evidence for acute diverticulitis. 6. 3 mm right middle lobe lung nodule. Fleischner Society Guidelines for low-risk patients, no follow-up is necessary. For high-risk patients (smoking history or other known risk factors) an optional chest CT at 12 months could be performed. Electronically Signed: Cirilo Maria MD at 6:44 EST ,
--- NOTE | 2021-09-09 05:42 | EKG12_ITS ---
Test Reason : ABD PAIN Blood Pressure : / mmHG Vent. Rate : 079 BPM Atrial Rate : 079 BPM P-R Int : 124 ms QRS Dur : 086 ms QT Int : 366 ms P-R-T Axes : 070 046 061 degrees QTc Int : 419 ms Normal sinus rhythm Normal ECG Confirmed by VAISHNAVI ROSE, REBECCA ([id number]), news videotape editor CHRISTIAN RIVERA ([id number]) on 09/10/2021 11:03:06 AM Referred By: KOLTON Confirmed By:REBECCA RIGGINS MD
[2021-09-09 05:48] LABS: Absolute Lymphocyte Count 2.88 X10^3/uL (0.83-4.51); Absolute Neutrophil Count 4.3 X10^3/uL (2.0-7.7); Basophil# 0.05 X10^3/uL; Basophil% 0.6 % (0-1); Eosinophil# 0.15 X10^3/uL; Eosinophils% 1.8 % (0-5); Hematocrit 39.9 % (37-47); Hemoglobin 12.5 g/dL (12.0-15.0); Lymphocyte # 2.88 X10^3/ul (0.83-4.51); Lymphocyte % 35.2 % (19-41); Mean Corp Hgb Conc 31.3 g/dL (32-36); Mean Corpuscular Hgb 27.7 pg (27.0-32.0); Mean Corpuscular Volume 88.3 fL (81-99); Mean Platelet Vol. 10.2 fl (6.2-12.0); Monocyte% 9.8 % (0-10); NRBC Flagged by Analyzer 0 % (0-5); Neutrophil # 4.29 X10^3/uL (2.7-7.7); Neutrophil % 52.5 % (47-70); Platelet Count 347 K/mm3 (150-450); RBC Distribution Width CV 13.2 % (11.6-14.6); RBC Distribution Width SD 42.9 fl (35.1-43.9); Red Blood Count 4.52 M/mm3 (4.2-5.4); White Blood Count 8.2 K/mm3 (4.4-11.0)
[2021-09-09] MEDS: Ondansetron 4 MG/2 ML Vial IV (05:52)
[2021-09-09] MEDS: Morphine 4 MG/ML Syringe IV (05:52)
[2021-09-09] MEDS: 0.9% Normal Saline 1,000 ML 999 ML IV (05:52)
[2021-09-09 06:18] LABS: International Normalized Ratio 0.9; Partial Thromboplast Time 26.2 Seconds (24.1-36.2); Prothrombin Time (Protime)PT. 11.5 SECONDS (11.7-14.9)
[2021-09-09 06:27] LABS: AST(SGOT) 13 U/L (15-37); Alanine Aminotransfer ALT/SGPT 15 U/L (13-56); Albumin, Serum 3.7 g/dL (3.2-5.0); Alkaline Phosphatase 54 U/L (45-117); Anion Gap 6 (5-15); BUN 9 mg/dL (7-18); BUN/Creat Ratio 12.6 RATIO (10-20); Bilirubin, Direct 0.11 mg/dL (0.00-0.30); Calcium,Total 8.8 mg/dL (8.5-10.1); Chloride 106 mmol/L (98-107); Creatinine, Serum 0.71 mg/dL (0.55-1.02); EST Glomerular Filtration Rate 85 mL/min (>60); Est Glom Filt Rate - Afr Amer 103 mL/min (>60); Estimated Creatinine Clearance 41.97 ml/min; Globulin 3.6 g/dL (2.2-4.2); Glucose 108 mg/dL (74-106); Lipase 179 U/L (73-393); Potassium 3.9 mmol/L (3.5-5.1); Protein, Total 7.3 g/dL (6.4-8.2); Sodium Level 140 mmol/L (136-145); Troponin-I HS 63 pg/mL (3.0-54.0)
[2021-09-09] MEDS: Aspirin 81 MG TAB.CHEW 324 MG PO (06:55)
[2021-09-09] MEDS: Nitroglycerin SL (ED/IMG/CATH) 0.4 MG TABLET SL ×3 (07:06→07:17)
[2021-09-09] MEDS: Nitroglycerin Oint 1 INCH PACKET TD (07:36)
--- NOTE | 2021-09-09 07:39 | EDS_ITS ---
HPI History of Present Illness Chief Complaint: Abd Pain Narrative Narrative: Patient is a 76-year-old female who states she got up to use the bathroom around 3 AM this morning. She states afterwards she could not sleep so she made some tea and sat down to read. She reports that she was sitting there when she had sudden onset midepigastric abdominal pain that was sharp in nature. She states the pain was localized to the area and did not radiate into her chest or back. She reports pain has been persistent for over an hour and secondary to this she woke her up to bring her to the hospital for evaluation. She does state that her mother had a past medical history of a rup tured aortic aneurysm and she is concerned for this based on her sudden onset of symptoms. [facility] Medical History Adenosarcoma of uterus Breast cancer Chronic diastolic heart failure Epigastric pain GERD (gastroesophageal reflux disease) Hot flashes Hyperlipidemia Left ventricular diastolic dysfunction Osteoporosis Pruritus of scalp Home Medications omeprazole 20 mg capsule,delayed release 20 mg PO QHS cap 01/19/20 [History Last Taken Unknown] alendronate 70 mg tablet 70 mg PO QWEEK 08/13/21 [History Last Taken Unknown] atorvastatin 20 mg tablet 10 mg PO .mwf tab 08/13/21 [History Last Taken Unknown] amoxicillin-pot clavulanate [Augmentin] 1 tab PO BID 09/09/21 [History Last Taken Unknown] Allergy/AdvReac Type Severity Reaction Status Date / Time chlorthalidone AdvReac Rash Verified 09/09/21 05:27 [From [place]] prednisone AdvReac Other Verified 09/09/21 05:27 Family History Father Cancer lung Heart disease Hypercholesterolemia Mother Breast cancer Heart disease CVA (cerebral vascular accident) Son Breast cancer Brother Cancer Throat cancer Surgical History History of hemorrhoidectomy (12/2016) History of laparoscopic cholecystectomy History of lumpectomy of left breast (12/11/09) History of robot-assisted laparoscopic hysterectomy (02/2014) History of umbilical hernia repair History of ventral hernia repair (03/2017) Social History Smoking Status: Never smoker alcohol intake: current alcohol intake frequency: a few times a month substance use type: does not use caffeine: No what type of physical activity do you participate in: walking seatbelt use: always do you feel safe at home: Yes additional social history: Antoine LACEY ROS ED Constitutional Constitutional ED: Denies chills or fever(s) ENT ENT ED: Denies sore throat Cardiovascular Cardiovascular: Denies chest pain, palpitations or racing heartbeat Respiratory/Chest Respiratory/Chest: Denies cough or dyspnea Gastrointestinal Gastrointestinal: Reports abdominal pain and nausea; Denies diarrhea or vomiting Genitourinary Genitourinary ED: Denies dysuria Musculoskeletal Musculoskeletal: Denies back pain or myalgias Integumentary Denies rash Neurologic Neurologic: Denies headache(s) Hematologic/Lymphatic Hematologic/Lymphatic: Denies easy bleeding or easy bruising EXAM Physical Exam Const Vital Signs: 09/09/21 05:21 09/09/21 07:06 09/09/21 07:12 Temperature 97.9 F Temperature Source Oral Pulse Rate 96 94 103 H Respiratory Rate 18 Blood Pressure 152/79 H 148/86 H 152/84 H Blood Pressure Mean 103 Pulse Ox 100 Oxygen Delivery Method Room Air 09/09/21 07:17 09/09/21 07:36 09/09/21 07:54 Temperature Temperature Source Pulse Rate 99 95 93 Respiratory Rate 17 Blood Pressure 117/76 123/73 H 118/69 Blood Pressure Mean 85 Pulse Ox 95 Oxygen Delivery Method Room Air Positive well nourished and well developed General Appearance ED: well developed HEENT Reports moist mucous membranes Eyes PERRL and EOMs intact bilaterally Neck supple and no JVD Chest Wall palpation of chest normal Resp normal respiratory effort and clear to auscultation bilaterally Cardio regular rate and regular rhythm Rate: other Other Details: Radial pulses are +2-4 bilaterally are equal and symmetric GI non-tender and non-distended GI Narrative: Abdomen is soft and nondistended with normal active bowel sounds. Patient reports pain in the midepigastric region but there is none elicited with palpation and there is no voluntary guarding or rigidity. No pulsatile mass Auscultation: normoactive bowel sounds Palpation: soft Back/Spine no CVA tenderness Extremity normal to inspection Extremity Narrative: No asymmetric edema no pitting edema negative Homans' sign bilaterally Neuro oriented x3 and CN's II-XII intact bilaterally Sensorium / Orientation: alert Motor Exam: strength 5/5 throughout Psych mental status grossly normal Skin no rashes or lesions noted MDM MDM MDM Narrative Medical decision making narrative: Patient presented to the ER hypertensive but otherwise afebrile with a nonsurgical abdomen. She had sudden onset midepigastric abdominal pain and with her mother's history of previous ruptured aneurysm there was concern for this so I elected to perform a basic abdominal/cardiac work-up along with CTA of the chest abdomen and pelvis. CT revealed no acute findings such as dissection aneurysm or PE. Blood work showed stable H&H normal kidney function as well as lipase and liver enzymes but her high-sensitivity troponin was elevated at 63. She was given aspirin and nitro and did report resolution of the pain with nitro and therefore paste was added. At this time with patient's history of hypertension and hyperlipidemia and now work-up showing elevated troponin as well as the fact she had improvement of symptoms with nitro I do feel that she should warrant further evaluation and therefore be kept in the hospital for continued care. Lab Data Attestation: I reviewed the patient's lab results. Labs: Laboratory Results - last 24 hr 09/09/21 09/09/21 09/09/21 05:45 06:00 06:00 WBC 8.2 RBC 4.52 Hgb 12.5 Hct 39.9 MCV 88.3 MCH 27.7 MCHC 31.3 L RDW Std Deviation 42.9 RDW Coeff of Naif 13.2 Plt Count 347 MPV 10.2 Immature Gran % (Auto) 0.100 Neut % (Auto) 52.5 Lymph % (Auto) 35.2 Canadian % (Auto) 9.8 Eos % (Auto) 1.8 Baso % (Auto) 0.6 Absolute Neuts (auto) 4.3 Absolute Lymphs (auto) 2.88 Nucleated RBC % 0 PT 11.5 L INR 0.9 APTT 26.2 Sodium 140 Potassium 3.9 Chloride 106 Carbon Dioxide 28.0 Anion Gap 6 BUN 9 Creatinine 0.71 Estim Creat Clear Calc 41.97 Est GFR (MDRD) Af Amer 103 Est GFR (MDRD) Non-Af 85 BUN/Creatinine Ratio 12.6 Glucose 108 H Calcium 8.8 Total Bilirubin 0.30 Direct Bilirubin 0.11 AST 13 L ALT 15 Alkaline Phosphatase 54 Troponin I High Sens 63 H Total Protein 7.3 Albumin 3.7 Globulin 3.6 Lipase 179 Radiography Diagnostic Testing: Clinical Impression(s) from Imaging Studies Chest/Abdomen/Pelvis CTA 09/09/21 05:40 IMPRESSION: 1. No evidence for pulmonary embolism, aortic aneurysm, or aortic dissection. 2. No evidence for arterial aneurysm, dissection, or stenosis in the abdomen or pelvis. 3. Mild atherosclerosis.. 4. Previous cholecystectomy and hysterectomy. 5. Colonic diverticulosis, without evidence for acute diverticulitis. 6. 3 mm right middle lobe lung nodule. Fleischner Society Guidelines for low-risk patients, no follow-up is necessary. For high-risk patients (smoking history or other known risk factors) an optional chest CT at 12 months could be performed. Electronically Signed: Cirilo Maria MD at 6:44 EST Reading Location ID and State: [facility] / [place] , Service support , Discharge Plan Triage Chief Complaint: Abd Pain ED Provider: Mil Garner Dx/Rx/DC Orders Clinical Impression: Elevated troponin, Nonspecific abdominal pain Prescriptions: No Action atorvastatin 20 mg tablet 10 mg PO .mwf RF: 0 alendronate [Fosamax] 70 mg tablet 70 mg PO QWEEK RF: 0 omeprazole 20 mg capsule,delayed release(DR/EC) 20 mg PO QHS RF: 0 amoxicillin-pot clavulanate [Augmentin] 875-125 mg Tablet 1 tab PO BID RF: 0 Primary Care Provider: Tommie Crews Referrals: Tommie Crews MD [Primary Care Provider] -
[2021-09-09 08:25] LABS: Troponin-I HS 61 pg/mL (3.0-54.0)
== END 2021-09-09 08:47 | disposition home or self-care (01) ==
PROVIDERS: Emergency Provider Emergency Medicine; PCP Family Medicine; Visit Provider Emergency Medicine
DX: R10.13 Epigastric pain (principal); I11.0 Hypertensive heart disease with heart failure; I50.32 Chronic diastolic (congestive) heart failure; R79.89 Other specified abnormal findings of blood chemistry; R11.0 Nausea; E78.5 Hyperlipidemia, unspecified; Z85.3 Personal history of malignant neoplasm of breast; K21.9 Gastro-esophageal reflux disease without esophagitis; M81.0 Age-related osteoporosis without current pathological fracture; Z79.899 Other long term (current) drug therapy
CPT/HCPCS: 71275; 74174; 80048; 80076; 83690; 84484; 85025; 85610; 85730; 93005; 96361; 96365; 96374; 96375; 99285; J7030; Q9967; A4216; J2405

== ENCOUNTER → 2022-03-26 | Outpatient (CLI) | payer MEDICARE, OTHER, SELFPAY ==
[2022-03-26 10:54] LABS: AST(SGOT) 19 U/L (15-37); Alanine Aminotransfer ALT/SGPT 18 U/L (13-56); Albumin, Serum 3.7 g/dL (3.2-5.0); Alkaline Phosphatase 49 U/L (45-117); Bilirubin, Direct 0.16 mg/dL (0.00-0.30); Cholesterol 206 mg/dL (200); Globulin 3.5 g/dL (2.2-4.2); High Density Lipoprotein 55 mg/dL; Protein, Total 7.2 g/dL (6.4-8.2); Triglycerides 144 mg/dL; Very Low Density Lipoprotein 29 mg/dL (5-40)
== END | disposition home or self-care (01) ==
LOC: MTLAB 08:39
PROVIDERS: PCP Family Medicine; Referring Provider Family Medicine; Visit Provider Family Medicine
DX: E78.5 Hyperlipidemia, unspecified (principal)
CPT/HCPCS: 36415; 80061; 80076

== ENCOUNTER → 2022-04-19 | Outpatient (CLI) | payer MEDICARE, OTHER, SELFPAY ==
--- NOTE | 2022-04-19 14:18 | CT_ITS ---
STUDY: CT RIGHT LOWER EXTREMITY WITHOUT CONTRAST REASON FOR EXAM: Right knee pain, surgical planning. TECHNIQUE: Transaxial CT imaging of the lower extremity was performed. Coronal and sagittal images were reformatted. Individualized dose optimization techniques were used for this CT. COMPARISON: None. FINDINGS: Knee: There are small marginal osteophytes, mild subchondral eburnation and severe joint space narrowing of the medial femorotibial compartment (coronal reconstruction 30). There is preservation of joint space of the lateral femorotibial compartment. There is mild joint space narrowing of the patellofemoral compartment (axial image 329). There is a small joint effusion. There is vascular calcification. Hip: There is preservation of joint space. Ankle: Normal tibiotalar, posterior subtalar, talonavicular and calcaneocuboid articulations. There is a small posterior calcaneal enthesophyte (sagittal reconstruction 30). CT/Extremity Lower without Contra IMPRESSION: Right knee osteoarthritis. Electronically Signed: Mckinley Pan MD at 14:54 EDT ,
[2022-04-19 14:38] LABS: Absolute Lymphocyte Count 2.65 X10^3/uL (0.83-4.51); Absolute Neutrophil Count 3.9 X10^3/uL (2.0-7.7); Basophil# 0.04 X10^3/uL; Basophil% 0.5 % (0-1); Eosinophil# 0.09 X10^3/uL; Eosinophils% 1.2 % (0-5); Hematocrit 40.2 % (37-47); Hemoglobin 12.7 g/dL (12.0-15.0); Lymphocyte # 2.65 X10^3/ul (0.83-4.51); Lymphocyte % 35.9 % (19-41); Mean Corp Hgb Conc 31.6 g/dL (32-36); Mean Corpuscular Hgb 27.8 pg (27.0-32.0); Monocyte% 9.5 % (0-10); NRBC Flagged by Analyzer 0 % (0-5); Neutrophil # 3.89 X10^3/uL (2.7-7.7); Neutrophil % 52.6 % (47-70); Platelet Count 279 K/mm3 (150-450); RBC Distribution Width CV 13.1 % (11.6-14.6); RBC Distribution Width SD 41.9 fl (35.1-43.9); Red Blood Count 4.57 M/mm3 (4.2-5.4); White Blood Count 7.4 K/mm3 (4.4-11.0)
[2022-04-19 16:14] LABS: Anion Gap 6 (5-15); BUN 13 mg/dL (7-18); BUN/Creat Ratio 14.3 RATIO (10-20); Calcium,Total 9.2 mg/dL (8.5-10.1); Chloride 104 mmol/L (98-107); Creatinine, Serum 0.91 mg/dL (0.55-1.02); EST Glomerular Filtration Rate 64 mL/min (>60); Est Glom Filt Rate - Afr Amer 78 mL/min (>60); Glucose 94 mg/dL (74-106); Potassium 4.8 mmol/L (3.5-5.1); Sodium Level 140 mmol/L (136-145)
== END | disposition home or self-care (01) ==
LOC: CT 14:08
PROVIDERS: PCP Family Medicine; Visit Provider Orthopaedic Surgery
DX: Z01.818 Encounter for other preprocedural examination (principal); Z01.810 Encounter for preprocedural cardiovascular examination; M17.11 Unilateral primary osteoarthritis, right knee
CPT/HCPCS: 36415; 73700; 80048; 85025

== ENCOUNTER → 2022-04-23 | Outpatient (CLI) | payer MEDICARE, OTHER, SELFPAY ==
--- NOTE | 2022-04-23 10:58 | EKG12_ITS ---
Test Reason : PRE OP Blood Pressure : / mmHG Vent. Rate : 085 BPM Atrial Rate : 085 BPM P-R Int : 092 ms QRS Dur : 090 ms QT Int : 346 ms P-R-T Axes : -07 065 061 degrees QTc Int : 411 ms Sinus rhythm with short CA Otherwise normal ECG Confirmed by MELODY ROSE, SANDRINE ([id number]), pictures editor CHRISTIAN RIVERA ([id number]) on 04/24/2022 8:40:14 AM Referred By: Sean Tellez Confirmed By:SANDRINE OLIVER MD
== END | disposition home or self-care (01) ==
PROVIDERS: PCP Family Medicine; Referring Provider Orthopaedic Surgery; Visit Provider Orthopaedic Surgery
DX: Z01.810 Encounter for preprocedural cardiovascular examination (principal); Z01.818 Encounter for other preprocedural examination
CPT/HCPCS: 93005

== ENCOUNTER → 2022-05-08 | Outpatient (CLI) | payer MEDICARE, OTHER, SELFPAY ==
--- NOTE | 2022-05-08 08:00 | KNEE_PTH ---
PATIENT: CHANELLE IGLESIAS LOC: [facility] U#:[id number] AGE/SX: 76/F ROOM: RE05/08/[address]: Dr. Sean Tellez DO : 1945 BED: DIS: 05/08/2022 SPEC #: [id number] RECD: 05/08/22 15:07 STATUS: EREN REYuko #: [id number] VANESSA: 05/08/22 08:[address]: Sean Tellez DEPT: SURGICAL PATHOLOGY RECD BY: Silvana Segundo ENTERED: 05/09/22 08:16 SP TYPE: TOTAL KNEE OTHR DR: Dr. Tommie Crews MD [facility] Tissues: Knee, NOS Procedures: Decalcification bone/plaque Surgery Specimen Level IV HEADER OPERATION: Robotic assisted right total knee arthroplasty PRE-OP DIAGNOSIS: Grade IV osteoarthritis right knee TISSUE SUBMITTED: Right knee bone and tissue MICROSCOPIC DIAGNOSIS Bone and tissue of right knee, total knee resection: Severe degenerative joint disease. Mild synovial hyperplasia. AM:lorraine 05/15/2022 MICROSCOPIC DESCRIPTION Slides are reviewed. GROSS DESCRIPTION Received is one container designated bone and soft tissue right knee. The specimen consists of multiple fragments of hein-yellow bone measuring in aggregate 14 x 10 x 2 cm. Also in the specimen container are multiple fragments of yellow-white soft tissue measuring in aggregate 8 x 8 x 1.5 cm. A number of bony fragments contain articular surfaces consistent with tibial plateau and femoral condyle and displaying prominent osteophyte formation, eburnation, and bone erosion. Community Engagement Representative sections are submitted in two cassettes as follows: 1 - soft tissue, 2 - bone after decalcification. / AM:lorraine 05/09/2022 TC:[facility]: [id number], [id number]
== END | disposition home or self-care (01) ==
LOC: LABSPEC 15:18
PROVIDERS: PCP Family Medicine; Visit Provider Orthopaedic Surgery
DX: M17.11 Unilateral primary osteoarthritis, right knee (principal)
CPT/HCPCS: 88305; 88311

== ENCOUNTER → 2022-05-20 | Outpatient (CLI) | payer MEDICARE, OTHER, SELFPAY ==
--- NOTE | 2022-05-20 12:54 | VDLE_ITS ---
Reason For Study: LEG PAIN RIGHT LEFT GSV is normal. CFV is compressible, spontaneous, phasic, CFV is compressible, spontaneous, phasic, competent, and demonstrates normal competent and demonstrates normal augmentation. augmentation. FV is compressible, spontaneous, phasic, competent and demonstrates normal augmentation. POP V is compressible, spontaneous, phasic, competent and demonstrates normal augmentation. T/P Trunk is compressible. PTV is compressible. RT PerV is compressible. Procedure This is a venous duplex using B-mode, color flow and spectral Doppler. Exam performed in department. The exam was diagnostic. A preliminary report was called and/or faxed to Dr. Tellez. VL/Venous Duplex US, Unilateral Interpretation Summary Deep veins of the right lower extremity are patent and compressible segmentally . There is no evidence of right lower extremity deep vein thrombosis. Valvular competence jesus manuel ears intact within the proximal deep venous system on the right . The right great saphenous vein a ppears patent and compressible segmentally. Ordering Physician: Sean Tellez Referring Physician: Sean Tellez Performed By: Mert Fisher RVT
== END | disposition home or self-care (01) ==
PROVIDERS: PCP Family Medicine; Referring Provider Orthopaedic Surgery; Visit Provider Orthopaedic Surgery
DX: M79.661 Pain in right lower leg (principal)
CPT/HCPCS: 93971

== ENCOUNTER 2023-02-18 11:11 | Outpatient (CLI) | payer MEDICARE, OTHER, SELFPAY ==
[2023-02-18 11:28] LABS: Absolute Neutrophil Count 6.7 X10^3/uL (2.0-7.7); Basophil# 0.04 X10^3/uL; Basophil% 0.4 % (0-1); Eosinophil# 0.04 X10^3/uL; Eosinophils% 0.4 % (0-5); Hematocrit 38.2 % (37-47); Hemoglobin 12.3 g/dL (12.0-15.0); Lymphocyte % 18.2 % (19-41); Mean Corp Hgb Conc 32.2 g/dL (32-36); Mean Corpuscular Hgb 28.3 pg (27.0-32.0); Mean Corpuscular Volume 87.8 fL (81-99); Mean Platelet Vol. 9.4 fl (6.2-12.0); Monocyte# 0.87 X10^3/uL; Monocyte% 9.3 % (0-10); NRBC Flagged by Analyzer 0 % (0-5); Neutrophil # 6.66 X10^3/uL (2.7-7.7); Neutrophil % 71.4 % (47-70); Platelet Count 295 K/mm3 (150-450); RBC Distribution Width CV 12.5 % (11.6-14.6); RBC Distribution Width SD 40.2 fl (35.1-43.9); Red Blood Count 4.35 M/mm3 (4.2-5.4); White Blood Count 9.3 K/mm3 (4.4-11.0)
[2023-02-18 11:57] LABS: ALB/GLOB Ratio 0.8 RATIO (0.9-2.4); AST(SGOT) 15 U/L (15-37); Alanine Aminotransfer ALT/SGPT 15 U/L (13-56); Albumin, Serum 3.3 g/dL (3.2-5.0); Alkaline Phosphatase 65 U/L (45-117); Anion Gap 5 (5-15); BUN 19 mg/dL (7-18); BUN/Creat Ratio 20.9 RATIO (10-20); Calcium,Total 9.1 mg/dL (8.5-10.1); Chloride 101 mmol/L (98-107); Creatinine, Serum 0.91 mg/dL (0.55-1.02); EST Glomerular Filtration Rate 64 mL/min (>60); Est Glom Filt Rate - Afr Amer 77 mL/min (>60); Globulin 4.1 g/dL (2.2-4.2); Glucose 95 mg/dL (74-106); Potassium 4.3 mmol/L (3.5-5.1); Protein, Total 7.4 g/dL (6.4-8.2); Sodium Level 134 mmol/L (136-145)
== END 2023-02-18 23:59 | disposition home or self-care (01) ==
LOC: LAB 11:13
PROVIDERS: PCP Family Medicine; Referring Provider Obstetrics & Gynecology; Visit Provider Obstetrics & Gynecology
DX: C55 Malignant neoplasm of uterus, part unspecified (principal); C50.919 Malignant neoplasm of unspecified site of unspecified female breast
CPT/HCPCS: 36415; 80053; 85025; 86304

== ENCOUNTER → 2023-02-27 | Outpatient (CLI) | payer MEDICARE, OTHER, SELFPAY ==
--- NOTE | 2023-02-27 08:18 | CT_ITS ---
STUDY: CT ABDOMEN AND PELVIS WITH CONTRAST - URINARY TRACT REASON FOR EXAM: Female, 77 years old. pelvic pain RADIATION DOSAGE (If Supplied By Facility): CTDIvol = ( 13.10 ) mGy, DLP = ( 575.37 ) mGycm TECHNIQUE: IV 100mL Isovue-300 was administered. Transaxial images were obtained from the dome of the diaphragm to the symphysis pubis in the arterial, nephrographic and excretory phases. Multiplanar coronal and sagittal images were reformatted. Individualized Dose Optimization Techniques Were Used For This CT. COMPARISON: September 09, 2021 FINDINGS: The visualized lung bases are unremarkable. The visualized portions of the heart are within normal limits. Tiny cysts are noted in the liver. Gallbladder has been removed. Common bile duct appears within normal limits. There is mild intrahepatic biliary ductal dilatation which may be related to being status post cholecystectomy. Normal spleen. Normal pancreas. Normal bilateral adrenal glands. Normal visualized stomach. Normal small intestine. There is mild descending and sigmoid colon diverticulosis without evidence for acute diverticulitis. The appendix is visualized and appears normal. Normal abdominal aorta. No retroperitoneal adenopathy. There is a small 1 cm cyst in the midpole of the right kidney anteriorly. Normal left kidney. Normal urinary bladder. Normal abdominal wall. Normal osseous structures. CT/Abdomen/Pelvis W IV Cont ONLY IMPRESSION: Status post cholecystectomy. Mild intrahepatic biliary ductal dilatation. Diverticulosis. Small right renal cyst. Electronically Signed: David Sheffield, at 9:46 EDT ,
== END | disposition home or self-care (01) ==
LOC: CT 08:15
PROVIDERS: PCP Family Medicine; Referring Provider Obstetrics & Gynecology; Visit Provider Obstetrics & Gynecology
DX: C55 Malignant neoplasm of uterus, part unspecified (principal)
CPT/HCPCS: 74177; Q9967

== ENCOUNTER → 2023-03-20 | Outpatient (CLI) | payer MEDICARE, OTHER, SELFPAY ==
[2023-03-20 10:34] LABS: Absolute Neutrophil Count 2.4 X10^3/uL (2.0-7.7); Basophil# 0.04 X10^3/uL; Basophil% 0.8 % (0-1); Eosinophil# 0.12 X10^3/uL; Eosinophils% 2.4 % (0-5); Hematocrit 39.7 % (37-47); Hemoglobin 12.4 g/dL (12.0-15.0); Lymphocyte % 38.4 % (19-41); Mean Corp Hgb Conc 31.2 g/dL (32-36); Mean Corpuscular Hgb 27.7 pg (27.0-32.0); Mean Corpuscular Volume 88.6 fL (81-99); Mean Platelet Vol. 10.4 fl (6.2-12.0); Monocyte# 0.51 X10^3/uL; Monocyte% 10.3 % (0-10); NRBC Flagged by Analyzer 0 % (0-5); Neutrophil # 2.36 X10^3/uL (2.7-7.7); Neutrophil % 47.7 % (47-70); Platelet Count 270 K/mm3 (150-450); RBC Distribution Width SD 42.4 fl (35.1-43.9); Red Blood Count 4.48 M/mm3 (4.2-5.4)
[2023-03-20 11:01] LABS: Vitamin D,25 Hydroxy 62.5 ng/mL
[2023-03-20 11:23] LABS: ALB/GLOB Ratio 1.1 RATIO (0.9-2.4); AST(SGOT) 19 U/L (15-37); Alanine Aminotransfer ALT/SGPT 18 U/L (13-56); Albumin, Serum 3.6 g/dL (3.2-5.0); Alkaline Phosphatase 46 U/L (45-117); Anion Gap 4 (5-15); BUN 15 mg/dL (7-18); BUN/Creat Ratio 16.9 RATIO (10-20); Calcium,Total 8.9 mg/dL (8.5-10.1); Chloride 103 mmol/L (98-107); Cholesterol 184 mg/dL (200); Creatinine, Serum 0.89 mg/dL (0.55-1.02); EST Glomerular Filtration Rate 66 mL/min (>60); Est Glom Filt Rate - Afr Amer 80 mL/min (>60); Globulin 3.2 g/dL (2.2-4.2); Glucose 83 mg/dL (74-106); High Density Lipoprotein 64 mg/dL; Potassium 4.2 mmol/L (3.5-5.1); Protein, Total 6.8 g/dL (6.4-8.2); Sodium Level 135 mmol/L (136-145); T4 Free Direct 1.03 ng/dL (0.76-1.46); Thyroid Stim Hormone (TSH) 1.31 uIU/mL (0.358-3.74); Triglycerides 137 mg/dL; Very Low Density Lipoprotein 27 mg/dL (5-40)
== END | disposition home or self-care (01) ==
LOC: BFHLAB 08:05
PROVIDERS: PCP Family Medicine; Referring Provider Family Medicine; Visit Provider Family Medicine
DX: I10 Essential (primary) hypertension (principal); E78.5 Hyperlipidemia, unspecified; M81.0 Age-related osteoporosis without current pathological fracture; I51.9 Heart disease, unspecified
CPT/HCPCS: 36415; 80053; 80061; 82306; 84439; 84443; 85025

== ENCOUNTER → 2023-04-09 | Outpatient (CLI) | payer MEDICARE, OTHER, SELFPAY ==
--- NOTE | 2023-04-09 15:06 | BD_ITS ---
STUDY: DUAL ENERGY X-RAY ABSORPTIOMETRY / DXA REASON FOR EXAM: Female, 77 years old. Z78.0 TECHNIQUE: Bone Mineral Density (BMD) measurements of lumbar spine and bilateral hips were obtained. COMPARISON: None. FINDINGS: Lumbar Spine (L1-L4): g/cm2 (0.919) / T-score (-1.2) / Z-score (1.3) Findings are suggestive of osteopenia with a low fracture risk. Left Femur Total: g/cm2 (0.795) / T-score (-1.2) / Z-score (0.7) Left Femoral Neck: g/cm2 (0.643) / T-score (-1.9) / Z-score (0.3) Right Femur Total: g/cm2 (-0782) / T-score (-1.3) / Z-score (0.6) Right Femoral Neck: g/cm2 (-0.572) / T-score (-2.5) / Z-score (-0.3) BD/Dexa Bone Density Study IMPRESSION: The patient is considered osteopenic as outlined below according to World [place] Organization (WHO) criteria with a high fracture risk. Reference Information: The T-score is the number of standard deviations above or below the standard which is normal for young adults at their peak bone mineral density. The World Health Organization (WHO) interprets the T-scores as follows: Above -1 Normal bone density Between -1 and -2.5 Osteopenia Equal to / or below -2.5 Osteoporosis As a practical clinical guideline, osteopenia may be graded as follows: Mild -1 through -1.5 Moderate -1.6 through -2.0 Severe -2.1 through -2.4 The Z-score is the number of standard deviations above or below age-matched controls. A Z-score of less than -1.5 would be considered abnormal. References: 1. NIH Osteoporosis and Related Bone Diseases www osteo.org 2. International Society for Clinical Densitometry www iscd.org 3. National Osteoporosis Foundation www nof.org Electronically Signed: Satnam Chaves MD at 10:52 EDT ,
== END | disposition home or self-care (01) ==
LOC: OPBD 15:02
PROVIDERS: PCP Family Medicine; Referring Provider Family Medicine; Visit Provider Family Medicine
DX: M81.0 Age-related osteoporosis without current pathological fracture (principal)
CPT/HCPCS: 77080

== ENCOUNTER → 2023-05-26 | Outpatient (CLI) | payer MEDICARE, OTHER, SELFPAY ==
--- NOTE | 2023-05-26 13:16 | MRI_ITS ---
STUDY: BILATERAL BREAST MR WITHOUT AND WITH CONTRAST REASON FOR EXAM: Female, 77 years old. Breast pain 3 weeks ago. Pain now resolved. History of left lumpectomy and radiation therapy in 2009. TECHNIQUE: Multi-sequence multi-echo imaging of both breasts was performed with a dedicated breast coil. T1-weighted and T2-weighted images were performed before the administration of contrast. T1-weighted images were also performed after the intravenous administration of 12 mL of Clariscan contrast. COMPARISON: Screening mammogram dated December 26, 2022 FINDINGS: RIGHT BREAST: Scattered fibroglandular densities with minimal background enhancement. No abnormal enhancing masses or areas of non-mass enhancement in the right breast. LEFT BREAST: Scattered fibroglandular densities with minimal background enhancement. Changes of lumpectomy with decreased volume of the left breast and minimal deformity. No abnormal enhancing masses or areas of non-mass enhancement in the left breast. No enlarged or abnormal lymph nodes. No abnormality in the visualized regions of the chest or liver. MRI/Breast Bilateral W/O and W IMPRESSION: Postlumpectomy changes in the left breast as described. No other abnormality. Yearly screening mammogram with the appropriate for follow-up. CATEGORY: BIRADS Category 2: Benign. A letter regarding these results will be sent to the patient by the facility within 30 days. Electronically Signed: Jeramy Martini MD at 12:10 EDT ,
[2023-05-26 14:03] LABS: CREATININE FINGERSTICK < 0.9 mg/dL (0.55-1.02); EGFR FINGERSTICK > 60.0000 mL/min (>60)
== END | disposition home or self-care (01) ==
LOC: MRI 13:13
PROVIDERS: PCP Family Medicine; Referring Provider Obstetrics & Gynecology; Visit Provider Obstetrics & Gynecology
DX: N64.4 Mastodynia (principal); C55 Malignant neoplasm of uterus, part unspecified; C50.919 Malignant neoplasm of unspecified site of unspecified female breast
CPT/HCPCS: 77049; C8908

== ENCOUNTER → 2024-04-27 | Outpatient (CLI) | payer MEDICARE, OTHER, SELFPAY ==
--- NOTE | 2024-04-27 13:35 | CDU_ITS ---
Reason For Study: ATHEROSCLEROSIS Rt. Velocities/BP Lt. Velocities/BP Prox CCA 70.5/13.8 cm/sec. Prox CCA 98.5/19.3 cm/sec. Mid CCA 61.0/16.6 cm/sec. Mid CCA 76.5/19.3 cm/sec. Dist CCA 57.2/19.5 cm/sec. Dist CCA 64.4/17.1 cm/sec. Prox ICA 51.1/21.5 cm/sec. Prox ICA 42.4/14.1 cm/sec. Mid ICA 99.2/41.0 cm/sec. Mid ICA 92.0/33.0 cm/sec. Dist ICA 148.5/60.8 cm/sec. Dist ICA 78.5/29.3 cm/sec. Rt. ICA/CCA = 148.5/61.0=2.4. Lt. ICA/CCA = 92.0/76.5=1.2. Prox ECA 58.2/11.0 cm/sec. Prox ECA 68.8/12.7 cm/sec. Rt. Vert. 40.7/10.1 cm/sec. Lt. Vert. 44.6/14.7 cm/sec. Right Extracranial There is heterogeneous, smooth atherosclerotic plaque noted in the right common carotid artery. There is heterogeneous, irregular atherosclerotic plaque noted in the right internal carotid artery. The tortuous nature of the right internal carotid artery may result in flow velocities overestimating the degree of stenosis. There is intimal thickening but no significant atherosclerotic plaque noted in the right external carotid artery. Antegrade flow is noted in the right vertebral artery. Left Extracranial There is homogeneous, smooth atherosclerotic plaque noted in the left common carotid artery. There is heterogeneous, smooth atherosclerotic plaque noted in the left internal carotid artery. There is intimal thickening but no significant atherosclerotic plaque noted in the left external carotid artery. Antegrade flow is noted in the left vertebral artery. Procedure Carotid Duplex [id number]. This is a Carotid Duplex examination using B-mode, color flow and specral Doppler. The study was technically difficult. Exam performed in department. VL/Carotid Duplex Ultrasound Interpretation Summary Moderate (50-69%) stenosis right extracranial internal carotid. Mild (<50%) stenosis left extracranial internal carotid. Patent and antegrade vertebrals bilaterally. Ordering Physician: Anil Stevenson Referring Physician: Anil Stevenson Performed By: Muna Beckett, PASHA, RVT
== END | disposition home or self-care (01) ==
LOC: CVS 13:33
PROVIDERS: PCP Family Medicine; Referring Provider Family Medicine; Visit Provider Family Medicine
DX: I65.23 Occlusion and stenosis of bilateral carotid arteries (principal)
CPT/HCPCS: 93880

== ENCOUNTER → 2024-05-12 | Outpatient (CLI) | payer MEDICARE, OTHER, SELFPAY ==
[2024-05-12 10:22] LABS: Absolute Lymphocyte Count 1.96 X10^3/uL (0.83-4.51); Absolute Neutrophil Count 2.4 X10^3/uL (2.0-7.7); Basophil# 0.05 X10^3/uL; Eosinophil# 0.14 X10^3/uL; Eosinophils% 2.7 % (0-5); Hematocrit 40.2 % (37-47); Hemoglobin 12.5 g/dL (12.0-15.0); Lymphocyte # 1.96 X10^3/ul (0.83-4.51); Lymphocyte % 37.6 % (19-41); Mean Corp Hgb Conc 31.1 g/dL (32-36); Mean Corpuscular Hgb 27.4 pg (27.0-32.0); Mean Platelet Vol. 10.6 fl (6.2-12.0); Monocyte# 0.64 X10^3/uL; Monocyte% 12.3 % (0-10); NRBC Flagged by Analyzer 0 % (0-5); Neutrophil # 2.41 X10^3/uL (2.7-7.7); Neutrophil % 46.2 % (47-70); Platelet Count 269 K/mm3 (150-450); RBC Distribution Width CV 12.6 % (11.6-14.6); RBC Distribution Width SD 40.8 fl (35.1-43.9); Red Blood Count 4.57 M/mm3 (4.2-5.4); White Blood Count 5.2 K/mm3 (4.4-11.0)
[2024-05-12 10:35] LABS: Vitamin D,25 Hydroxy 52.1 ng/mL
[2024-05-12 10:38] LABS: ALB/GLOB Ratio 1.1 RATIO (0.9-2.4); AST(SGOT) 19 U/L (15-37); Alanine Aminotransfer ALT/SGPT 18 U/L (13-56); Albumin, Serum 3.7 g/dL (3.2-5.0); Alkaline Phosphatase 40 U/L (45-117); Anion Gap 1 (5-15); BUN 16 mg/dL (7-18); BUN/Creat Ratio 17.6 RATIO (10-20); Calcium,Total 9.3 mg/dL (8.5-10.1); Chloride 104 mmol/L (98-107); Cholesterol 200 mg/dL (200); Creatinine, Serum 0.91 mg/dL (0.55-1.02); EST Glomerular Filtration Rate 64 mL/min (>60); Est Glom Filt Rate - Afr Amer 77 mL/min (>60); Globulin 3.3 g/dL (2.2-4.2); Glucose 94 mg/dL (74-106); High Density Lipoprotein 66 mg/dL; Potassium 4.3 mmol/L (3.5-5.1); Sodium Level 138 mmol/L (136-145); Triglycerides 123 mg/dL; Very Low Density Lipoprotein 25 mg/dL (5-40)
== END | disposition home or self-care (01) ==
LOC: MTLAB 08:40
PROVIDERS: PCP Family Medicine; Referring Provider Family Medicine; Visit Provider Family Medicine
DX: I10 Essential (primary) hypertension (principal); M81.0 Age-related osteoporosis without current pathological fracture
CPT/HCPCS: 36415; 80053; 80061; 82306; 85025

== ENCOUNTER → 2024-07-26 | Outpatient (CLI) | payer MEDICARE, OTHER, SELFPAY ==
[2024-07-26 12:54] LABS: Cholesterol 190 mg/dL (200); High Density Lipoprotein 69 mg/dL; Triglycerides 102 mg/dL; Very Low Density Lipoprotein 20 mg/dL (5-40)
== END | disposition home or self-care (01) ==
LOC: BFHLAB 10:44
PROVIDERS: PCP Family Medicine; Referring Provider Family Medicine; Visit Provider Family Medicine
DX: E78.5 Hyperlipidemia, unspecified (principal)
CPT/HCPCS: 36415; 80061

== ENCOUNTER → 2024-10-04 | Outpatient (CLI) | payer MEDICARE, OTHER, SELFPAY ==
[2024-10-04 12:40] LABS: T4 Free Direct 0.83 ng/dL (0.76-1.46)
[2024-10-05 08:08] LABS: Thyroid Peroxidase AB 9 IU/mL (0-34)
== END | disposition home or self-care (01) ==
LOC: BWCLAB 10:30
PROVIDERS: PCP Family Medicine; Referring Provider Obstetrics & Gynecology; Visit Provider Obstetrics & Gynecology
DX: R22.1 Localized swelling, mass and lump, neck (principal); E78.5 Hyperlipidemia, unspecified
CPT/HCPCS: 36415; 84439; 84443; 86376

== ENCOUNTER → 2024-10-05 | Outpatient (CLI) | payer MEDICARE, OTHER, SELFPAY ==
--- NOTE | 2024-10-05 14:16 | US_ITS ---
PROCEDURE: ULTRASOUND THYROID REASON FOR EXAM: Right-sided thyroid. TECHNIQUE: Real-time grayscale and color flow imaging was performed along with routine image documentation. COMPARISON: None. FINDINGS: Right thyroid lobe measures 4.7 x 1.4 x 1.1 cm.. Left thyroid lobe measures 4.5 x 1.4 x 1.1 cm. Isthmus thickness is0.22 cm. Thyroid Size: Normal Background Echotexture: Homogeneous. Thyroid Nodules: Left. NODULE: Midpole, solid, 0.7 x 0.6 x 0.5 cm, isoechoic, wider than tall, no calcifications, TR 3. US/Thyroid IMPRESSION: A TR 3 category micronodule in the left midpole. No FNA warranted at this time . Follow-up ultrasound recommended in 12 months. Reading Location: [place] [id number]
== END | disposition home or self-care (01) ==
LOC: US 14:13
PROVIDERS: PCP Family Medicine; Referring Provider Obstetrics & Gynecology; Visit Provider Obstetrics & Gynecology
DX: R22.1 Localized swelling, mass and lump, neck (principal)
CPT/HCPCS: 76536

== ENCOUNTER → 2024-10-11 | Outpatient (CLI) | payer MEDICARE, OTHER, SELFPAY ==
[2024-10-11 13:29] LABS: AST(SGOT) 23 U/L (<=31); Alanine Aminotransfer ALT/SGPT 12 U/L (<=34); Albumin, Serum 4.3 g/dL (3.4-4.8); Alkaline Phosphatase 45 U/L (35-104); Bilirubin, Direct 0.16 mg/dL (0.00-0.30); Cholesterol 190 mg/dL (<=200); Globulin 2.7 g/dL (2.2-4.2); High Density Lipoprotein 66 mg/dL; Low Density Lipoprotein Calc. 99 mg/dL; Total Bilirubin 0.37 mg/dL (0.00-1.30); Triglycerides 125 mg/dL; Very Low Density Lipoprotein 25 mg/dL (5-40); cholesterol:hdl ratio screen 2.89
== END | disposition home or self-care (01) ==
LOC: BFHLAB 08:51
PROVIDERS: PCP Family Medicine; Referring Provider Family Medicine; Visit Provider Family Medicine
DX: E78.5 Hyperlipidemia, unspecified (principal); Z51.81 Encounter for therapeutic drug level monitoring
CPT/HCPCS: 36415; 80061; 80076

== ENCOUNTER → 2024-10-12 | Outpatient (CLI) | payer MEDICARE, OTHER, SELFPAY ==
--- NOTE | 2024-10-12 13:06 | CT_ITS ---
PROCEDURE: SOFT TISSUE NECK WITH CONTRAST REASON FOR EXAM: Right posterior cervical adenopathy. History of breast carcinoma. Prior lumpectomy and radiation. TECHNIQUE: CT of the soft tissues of the neck from the orbits to the upper mediastinum with intravenous contrast. CONTRAST: 70 5 cc of Isovue 370. COMPARISON: None. FINDINGS: Airway: Midline and patent. Salivary glands: Unremarkable. Lymph nodes: No cervical lymphadenopathy. Thyroid: Unremarkable. Vasculature: Carotid arteries and internal jugular veins are unremarkable. Orbits: Unremarkable at visualized levels. Paranasal sinuses and mastoids: Grossly clear at visualized levels. Lung apices: Clear. Upper mediastinum: Visualized mediastinum is unremarkable. Bones: Multilevel degenerative changes of the spine. CT/Soft Tissue Neck WITH Contrast IMPRESSION: No acute abnormality is seen. One or more dose reduction techniques were used (e.g., Automated exposure contr ol, adjustment of the mA and/or kV according to patient size, use of iterative reconstruction technique). Reading Location: [facility]
== END | disposition home or self-care (01) ==
LOC: CT 12:56
PROVIDERS: PCP Family Medicine; Referring Provider Family Medicine; Visit Provider Family Medicine
DX: R59.0 Localized enlarged lymph nodes (principal); Z85.3 Personal history of malignant neoplasm of breast; Z85.42 Personal history of malignant neoplasm of other parts of uterus
CPT/HCPCS: 70491; Q9967

== ENCOUNTER → 2024-10-19 | Outpatient (CLI) | payer MEDICARE, OTHER, SELFPAY ==
--- NOTE | 2024-10-19 13:31 | VDLE_ITS ---
Reason For Study Reason For Study: Right radial calf pain RIGHT LEFT GSV is normal. CFV is compressible, spontaneous, phasic, competent, CFV is compressible, spontaneous, phasic, competent and demonstrates normal augmentation. and demonstrates normal augmentation. FV is compressible, spontaneous, phasic, competent and demonstrates normal augmentation. POP V is compressible, spontaneous, phasic, competent and demonstrates normal augmentation. T/P Trunk is compressible. PTV is compressible. RT PerV is compressible. Nonvascularized structure is noted in the right proximal calf muscle that measures 0.94 x1.59 x 3.57 cm. Procedure This is a venous duplex using B-mode, color flow and spectral Doppler. Exam performed in department. A preliminary report was called and/or faxed to Dr. Stevenson. VL/Venous Duplex US, Unilateral Interpretation Summary Deep veins of the right lower extremity are patent and compressible segmentally . There is no evidence of right lower extremity deep vein thrombosis. The right great saphenous vein appears patent a nd compressible segmentally. Nonvascularized structure is noted in the right proximal calf muscle that measu res 0.94 x1.59 x 3.57 cm. Ordering Physician: Anil Stevenson Referring Physician: Anil Stevenson Performed By: Deborah Garay RVT
== END | disposition home or self-care (01) ==
LOC: CVS 13:31
PROVIDERS: PCP Family Medicine; Referring Provider Family Medicine; Visit Provider Family Medicine
DX: M79.661 Pain in right lower leg (principal)
CPT/HCPCS: 93971

== ENCOUNTER 2024-11-11 06:52 | Emergency (ER) | payer MEDICARE, OTHER, SELFPAY ==
[2024-11-11 06:54] VITALS: BP 151/75; PULSE 86; RESP 18; TEMP 36.6; O2SAT 97; BMI 26.2
--- NOTE | 2024-11-11 07:08 | EKG12_ITS ---
Test Reason : cp Blood Pressure : */* mmHG Vent. Rate : 77 BPM Atrial Rate : 77 BPM P-R Int : 132 ms QRS Dur : 94 ms QT Int : 364 ms P-R-T Axes : 83 59 79 degrees QTcB Int : 411 ms Normal sinus rhythm Normal ECG Confirmed by VAISHNAVI ROSE, REBECCA ([id number]), assistant editor JESSICA URENA ([id number]) on 11/12/2024 9:22:02 AM Referred By: Confirmed By: REBECCA RIGGINS MD
--- NOTE | 2024-11-11 07:10 | ED.VIS.CHEST ---
HPI History of Present Illness Chief Complaint: Chest Pain Narrative Narrative: Chief complaint and HPI: Chest pain. 79-year-old female with past medical history of HLD, osteoporosis presents for evaluation of chest pain. Patient states she has been having episodic chest pain on and off for several months. She saw her PCP for this. Plan was for outpatient stress test if this continued. Patient states that the pain occurs randomly. It is not associated with exercise. She states she woke up today to use the bathroom and developed pain in the left side of her chest. It does not radiate into the jaw, neck, arm. Denies any diaphoresis, nausea, vomiting, lightheadedness. Patient states it is pulsating in nature. Last several seconds and then reoccurs. States her pain is already improving. She started taking a daily aspirin a little while ago secondary to her brother having a CVA. She got a carotid ultrasound that was negative. She did not take aspirin today. She denies any fever, chills, shortness of breath, URI symptoms, abdominal pain. Denies a history of DVT/PE, blood clotting disorder, recent trauma or surgery, exogenous estrogen use, unilateral leg swelling, travel. On chart review, her problem list states that she has hypertension. Patient states that she does not have hypertension and does not take any medication. Denies tobacco abuse. No young family history of CAD/MS. Review of systems: See HPI Medications: As listed on the chart Allergies: As listed on the chart PFSH: Per chart Vital signs: As listed on the chart. Reviewed. Physical exam: Gen: A&O x3, NAD Head: Normocephalic, atraumatic Eyes: No sclera icterus, conjunctiva clear ENT: Moist mucous membranes Neck: Trachea midline, No JVD CV: RRR, no murmurs, no peripheral edema, tender to palpation on the left side of the chest around rib 4 and 5 anteriorly-does cause pressure/sharp pain however is slightly different than the pain she has been experiencing Resp: Lungs CTA BL, no w/r/c GI: Abd soft, non-distended, non-tender, no r/r/g Musc: Full ROM, no deformity Skin: Warm, dry Neuro: Alert, oriented, grossly intact, sensation intact Psych: Cooperative, appropriate mood and affect [facility] Medical History COVID-19 Left ventricular diastolic dysfunction Chronic diastolic heart failure Hyperlipidemia GERD (gastroesophageal reflux disease) Osteoporosis Pruritus of scalp Epigastric pain Hot flashes Breast cancer Adenosarcoma of uterus Home Medications ?Medication ?Instructions ?Recorded ?Last Taken ?Type alendronate 70 mg tablet (Fosamax) 70 mg PO QWEEK 08/13/21 Unknown History rosuvastatin 10 mg tablet (Crestor) 10 mg PO DIRECTED 10/04/24 Unknown History aspirin 81 mg capsule 81 mg PO DAILY 11/11/24 Unknown History Allergy/AdvReac Type Severity Reaction Status Date / Time nirmatrelvir (From Paxlovid) Allergy Mild unknown Verified 11/11/24 06:53 ritonavir (From Paxlovid) Allergy Mild unknown Verified 11/11/24 06:53 chlorthalidone (From AdvReac Rash Verified 11/11/24 06:53 [place]) prednisone AdvReac Other Verified 11/11/24 06:53 Family History Father Cancer lung Heart disease Hypercholesterolemia Mother Breast cancer Heart disease CVA (cerebral vascular accident) Son Breast cancer Brother Cancer Throat cancer Surgical History Status post right knee replacement Status post left knee replacement History of lumpectomy of left breast (12/11/09) History of ventral hernia repair (03/2017) History of hemorrhoidectomy (12/2016) History of robot-assisted laparoscopic hysterectomy (02/2014) History of laparoscopic cholecystectomy History of umbilical hernia repair Social History Smoking Status: Never smoker alcohol intake: current alcohol intake frequency: a few times a month substance use type: does not use caffeine: No what type of physical activity do you participate in: other details: stationary bike frequency: 5-6 times per week seatbelt use: always do you feel safe at home: Yes additional social history: Antoine EXAM Physical Exam Const Vital Signs: 11/11/24 06:54 11/11/24 06:54 11/11/24 07:52 Temperature 97.8 F Temperature Source Oral Pulse Rate 86 75 Respiratory Rate 18 12 Respiratory Effort Normal Blood Pressure 151/75 H 135/69 H Blood Pressure Mean 100 91 Pulse Ox 97 Oxygen Delivery Method Room Air 11/11/24 08:00 11/11/24 09:00 Temperature Temperature Source Pulse Rate 77 75 Respiratory Rate 14 18 Respiratory Effort Blood Pressure 131/67 H 101/60 Blood Pressure Mean 88 73 Pulse Ox Oxygen Delivery Method Room Air MDM MDM MDM Narrative Medical decision making narrative: 79-year-old female with past medical history of HLD, osteoporosis presents for evaluation of chest pain. Patient states she has been having episodic chest pain on and off for several months. She saw her PCP for this. Plan was for outpatient stress test if this continued. On chart review, patient has seen Dr. Cano in the past. She had a echocardiogram on 01/24/2020 that showed an EF of 60%. Stage II diastolic dysfunction. She had a stress test on 01/18/2020. It was normal except for ST depressions. Differential diagnosis includes but is not limited to musculoskeletal pain, pleurisy, ACS, PE, arrhythmia, anemia, CHF. Patient did not take her aspirin yet today. Aspirin ordered. Cardiac workup ordered. EKG and chest x-ray reviewed see below. CBC without leukocytosis or anemia. BMP relatively unremarkable. BNP unremarkable. D-dimer unremarkable. First troponin unremarkable. Awaiting second troponin/delta. On reevaluation, patient is not having any chest pain. Delta troponin 0. Again on reevaluation patient is not having chest pain. Her heart score is a 3, placing her at a low risk for ACS. Patient was updated of all the results. Is comfortable with the plan to discharge home. Follow-up with PCP and cardiology. Return precautions explained. She confirmed understand the plan. EKG: Interpreted by me/EM physician: EKG shows normal sinus rhythm without any acute ischemic changes. Heart rate 77. Diagnostic: Interpreted by me/EM physician: Chest x-ray without pneumonia, effusion, cardiomegaly, pneumothorax. Patient has surgical clips in the left breast. Per radiology, aortic atherosclerotic calcifications. Impression: 1. Chronic episodic chest pain, unclear etiology Lab Data Labs: Laboratory Results - last 24 hr 11/11/24 11/11/24 06:57 08:58 WBC 6.2 RBC 4.57 Hgb 12.8 Hct 39.5 MCV 86.4 MCH 28.0 MCHC 32.4 RDW Std Deviation 39.9 RDW Coeff of Naif 12.8 Plt Count 250 MPV 9.7 Immature Gran % (Auto) 0.500 Neut % (Auto) 43.9 L Lymph % (Auto) 40.3 Leslie % (Auto) 12.1 H Eos % (Auto) 2.1 Baso % (Auto) 1.1 H Absolute Neuts (auto) 2.7 Absolute Lymphs (auto) 2.50 Nucleated RBC % 0 D-Dimer Quant (PE/DVT) 0.27 Sodium 137 Potassium 4.3 Chloride 100 Carbon Dioxide 24.9 Anion Gap 12 BUN 18 Creatinine 0.88 Estim Creat Clear Calc 50.39 Est GFR (MDRD) Non-Af 67 BUN/Creatinine Ratio 20.1 H Glucose 90 Calcium 9.1 Troponin T High Sens 9 Troponin T Hi Sens 2 Hr 9 NT pro BNP II 57 Radiography Diagnostic Testing: Clinical Impression(s) from Imaging Studies Chest X-Ray 11/11/24 07:22 IMPRESSION: No evidence of acute disease. Reading Location: [facility] Discharge Plan Triage Chief Complaint: Chest Pain ED Provider: Jesse Barger Dx/Rx/DC Orders Clinical Impression: Chest pain Instructions: Chest Pain [facility] Prescriptions: No Action alendronate [Fosamax] 70 mg tablet 70 mg PO QWEEK Rx Instructions: FRIDAY rosuvastatin [Crestor] 10 mg tablet 10 mg PO DIRECTED Rx Instructions: Mon-Fri aspirin 81 mg capsule 81 mg PO DAILY Primary Care Provider: Anil Stevenson Referrals: Eleuterio Cano MD [Med Staff - Active Staff] - 3-5 Days Anil Stevenson DO [Primary Care Provider] - 3-5 Days Activity Restrictions/Additional Instructions: Return back to the ED if symptoms change or worsen. Follow-up with your primary care physician and cardiology. Print Language: Yakut Disposition Disposition: Home, Self Care
[2024-11-11] MEDS: Aspirin 81 MG TAB.CHEW 324 MG PO (07:16)
[2024-11-11 07:17] LABS: Absolute Neutrophil Count 2.7 X10^3/uL (2.0-7.7); Basophil# 0.07 X10^3/uL; Basophil% 1.1 % (0-1); Eosinophil# 0.13 X10^3/uL; Eosinophils% 2.1 % (0-5); Hematocrit 39.5 % (37-47); Hemoglobin 12.8 g/dL (12.0-15.0); Lymphocyte % 40.3 % (19-41); Mean Corp Hgb Conc 32.4 g/dL (32-36); Mean Corpuscular Volume 86.4 fL (81-99); Mean Platelet Vol. 9.7 fl (6.2-12.0); Monocyte# 0.75 X10^3/uL; Monocyte% 12.1 % (0-10); NRBC Flagged by Analyzer 0 % (0-5); Neutrophil # 2.73 X10^3/uL (2.7-7.7); Neutrophil % 43.9 % (47-70); Platelet Count 250 K/mm3 (150-450); RBC Distribution Width CV 12.8 % (11.6-14.6); RBC Distribution Width SD 39.9 fl (35.1-43.9); Red Blood Count 4.57 M/mm3 (4.2-5.4); White Blood Count 6.2 K/mm3 (4.4-11.0)
--- NOTE | 2024-11-11 07:22 | RAD_ITS ---
PROCEDURE: CHEST PA AND LATERAL 11/11/2024 REASON FOR EXAM: CHEST PAIN TECHNIQUE: Frontal and lateral views of the chest. COMPARISON: 03/26/2021 FINDINGS: The lungs are clear. Pulmonary vascularity appears within limits. No pneumothorax or pleural effusion. The cardiac and mediastinal contours appear within limits. Surgical clips left anterior chest again seen. Visualized osseous structures appear within limits. Aortic atherosclerotic calcifications again seen. RAD/Chest PA and Lateral IMPRESSION: No evidence of acute disease. Reading Location: [id number]
[2024-11-11 07:33] LABS: Troponin T High Sensitivity 9 ng/L (<=14)
[2024-11-11 07:35] LABS: Anion Gap 12 (5-15); BUN 18 mg/dL (4-19); BUN/Creat Ratio 20.1 RATIO (10-20); Calcium,Total 9.1 mg/dL (7.6-11.0); Carbon Dioxide 24.9 mmol/L (21.0-32.0); Chloride 100 mmol/L (98-108); Creatinine, Serum 0.88 mg/dL (0.70-1.20); EST Glomerular Filtration Rate 67 (>60); Estimated Creatinine Clearance 50.39 ml/min (50-250); Glucose 90 mg/dL (70-99); Potassium 4.3 mmol/L (3.3-5.1); Pro- Brain NATRIURETIC PEPTIDE 57 pg/mL (<=1800); Sodium Level 137 mmol/L (133-145)
[2024-11-11 07:52] VITALS: BP 135/69; PULSE 75; RESP 12
[2024-11-11 08:00] VITALS: BP 131/67; PULSE 77; RESP 14
[2024-11-11 08:19] LABS: D-Dimer Quantitative (DVT/PE) 0.27 FEU/ug/m (0.27-0.49)
[2024-11-11 09:00] VITALS: BP 101/60; PULSE 75; RESP 18
[2024-11-11 09:23] LABS: Troponin T High Sens 2 HR 9 ng/L (<=14)
[2024-11-11 09:31] VITALS: BP 124/82; PULSE 74; RESP 18; TEMP 36.9; O2SAT 94
== END 2024-11-11 09:37 | disposition home or self-care (01) ==
PROVIDERS: Emergency Provider Surgery; PCP Family Medicine; Visit Provider Surgery
DX: R07.9 Chest pain, unspecified (principal); I50.32 Chronic diastolic (congestive) heart failure; E78.5 Hyperlipidemia, unspecified; Z85.3 Personal history of malignant neoplasm of breast; M81.0 Age-related osteoporosis without current pathological fracture; Z79.899 Other long term (current) drug therapy; Z79.82 Long term (current) use of aspirin; Z96.653 Presence of artificial knee joint, bilateral; Z90.710 Acquired absence of both cervix and uterus; Z90.49 Acquired absence of other specified parts of digestive tract
CPT/HCPCS: 71046; 80048; 83880; 84484; 85025; 85379; 93005; 99284; A4216

== ENCOUNTER → 2024-11-25 | Outpatient (CLI) | payer MEDICARE, OTHER, SELFPAY ==
--- NOTE | 2024-11-25 14:00 | STRESSREP ---
Stress Test Report Exercise stress test. 79-year-old lady with a history of chest pain Stress protocol: Resting EKG demonstrates normal sinus rhythm with a rate of 77 bpm resting blood pressure is 126/78 mmHg. The patient exercised according to the regular Sam protocol for a total duration of 5 minutes and 9 seconds attaining a maximum heart rate of 166 bpm which was 116% of maximum predicted heart rate; the maximum workload was 7 METS metabolic equivalents. At rest there were no ST or T wave changes noted to suggest ischemia and at peak exercise upsloping ST changes only were noted which did not meet the criteria for ischemia. No clinical angina was noted the test was terminated due to the target heart rate being achieved/fatigue. The peak blood pressure was 190/74 mmHg. Rate-pressure product was 31,500. Conclusion: Stress test with no EKG criteria for ischemia at a moderate workload. Excellent functional capacity.
== END | disposition home or self-care (01) ==
LOC: CVS 12:14
PROVIDERS: PCP Family Medicine; Referring Provider Family Medicine; Visit Provider Family Medicine
DX: R07.9 Chest pain, unspecified (principal)
CPT/HCPCS: 93017

== ENCOUNTER → 2025-01-05 | Outpatient (CLI) | payer MEDICARE, OTHER, SELFPAY ==
[2025-01-05 11:28] LABS: Anion Gap 9 (5-15); BUN 15 mg/dL (4-19); BUN/Creat Ratio 16.8 RATIO (10-20); Calcium,Total 9.4 mg/dL (7.6-11.0); Carbon Dioxide 28.3 mmol/L (21.0-32.0); Chloride 99 mmol/L (98-108); EST Glomerular Filtration Rate 66 (>60); Glucose 77 mg/dL (70-99); Sodium Level 136 mmol/L (133-145)
== END | disposition home or self-care (01) ==
LOC: MTLAB 09:21
PROVIDERS: PCP Family Medicine; Referring Provider Family Medicine; Visit Provider Family Medicine
DX: I10 Essential (primary) hypertension (principal)
CPT/HCPCS: 36415; 80048

== ENCOUNTER → 2025-02-01 | Outpatient (CLI) | payer MEDICARE, OTHER, SELFPAY ==
--- NOTE | 2025-02-01 13:07 | CT_ITS ---
PROCEDURE: LIMITED CHEST CT CARDIAC ONLY 02/01/2025 REASON FOR EXAM: CHEST PAIN TECHNIQUE: LIMITED CHEST CT CARDIAC ONLY CONTRAST: Isovue 3 7 VOLUME: 75 mL One or more dose reduction techniques were used (e.g., Automated exposure control, adjustment of the mA and/or kV according to patient size, use of iterative reconstruction technique). RADIATION DOSE SUMMARY: CTDlvol: 29.5 mGy DLP: 1005.82 mGycm COMPARISON: None FINDINGS: Coronary artery calcification. No significant mediastinal lymph nodes seen. The visualized portions of the lung is unremarkable. CT/Limited Chest CT Cardiac Only IMPRESSION: Coronary artery calcification. Reading Location: [facility]
[2025-02-01 13:17] VITALS: BP 144/63; PULSE 72; RESP 18; O2SAT 98; BMI 23.1
[2025-02-01 13:41] VITALS: BP 153/66; PULSE 72
[2025-02-01] MEDS: Nitroglycerin SL (ED/IMG/CATH) 0.4 MG TABLET SL (13:41)
[2025-02-01 13:51] VITALS: BP 117/64; PULSE 74; RESP 18; O2SAT 94
--- NOTE | 2025-02-02 20:09 | CCTA.WCONT ---
CCTA w/Cont Coronary Arteries Date of Study:: 02/01/25 Chest pain Coronary Calcium Scoring: High-resolution Computed Tomographic imaging of the chest was performed on [02/01/2025], with particular attention paid to the coronary arteries. Intravenous contrast agent was administered per protocol and images reconstructed and displayed. LEFT MAIN CORONARY ARTERY: Arises from the left coronary cusp and bifurcates to left anterior descending artery and left circumflex artery. No significant atherosclerotic plaquing is noted. [] LEFT ANTERIOR DESCENDING CORONARY ARTERY: This arises from the left main coronary artery. The vessel courses towards the apex of the ventricle gives of a diagonal vessel. There is an eccentric calcified plaque noted in the proximal to mid left anterior descending artery which is nonocclusive and appears to be at most 40 to 50% stenosed. [] LEFT CIRCUMFLEX CORONARY ARTERY: Nondominant by medium size vessel with no significant atherosclerotic plaquing noted. [] RIGHT CORONARY ARTERY: Dominant right coronary artery arising from the right coronary cusp with no significant atherosclerotic plaquing present. [] THORACIC AORTA: [] PULMONARY ARTERY: [] LEFT ATRIUM/APPENDAGE: [] MITRAL VALVE: [] AORTIC VALVE: [] LEFT VENTRICLE: [] CORONARY CALCIUM SCORE: [] Calcium Scoring Interpretation: Different methods to categorize the overall amount of coronary plaque. Overall amount CAC SIS Visual of coronary plaque P1 Mild -100 <2 1-2 vessels with mild amount of plaque P2 Moderate 101-300 3-4 1-2 vessels with moderate amount, 3 vessels with mild amount of plaque P3 Severe 301-999 5-7 3 vessels with moderate amount, 1 vessel with severe amount of plaque P4 Extensive >1000 >8 2-3 vessels with severe amount of plaque Conclusion: CT angiogram demonstrating eccentric plaque noted in the left anterior descending artery nonobstructive. The rest of the vessels appeared to be free of significant atherosclerotic plaquing presents
== END | disposition home or self-care (01) ==
LOC: CT 12:49
PROVIDERS: PCP Family Medicine; Referring Provider Family Medicine; Visit Provider Family Medicine
DX: R07.9 Chest pain, unspecified (principal)
CPT/HCPCS: 75574; 76380; Q9967

== ENCOUNTER → 2025-04-18 | Outpatient (CLI) | payer MEDICARE, OTHER, SELFPAY ==
[2025-04-18 13:04] LABS: CRP < 3.00 mg/L (0.0-3.0)
[2025-04-18 14:27] LABS: Hematocrit 42.3 % (37-47); Hemoglobin 13.3 g/dL (12.0-15.0); Immature Granulocytes Count 0.010 X10^3/uL (0.0-0.0); Mean Corp Hgb Conc 31.4 g/dL (32-36); Mean Corpuscular Volume 88.7 fL (81-99); Mean Platelet Vol. 10.6 fl (6.2-12.0); NRBC Flagged by Analyzer 0 % (0-5); Platelet Count 265 K/mm3 (150-450); RBC Distribution Width CV 12.9 % (11.6-14.6); RBC Distribution Width SD 42.1 fl (35.1-43.9); Red Blood Count 4.77 M/mm3 (4.2-5.4); White Blood Count 5.1 K/mm3 (4.4-11.0)
== END | disposition home or self-care (01) ==
LOC: BFHLAB 08:50
PROVIDERS: PCP Family Medicine; Visit Provider Family Medicine
DX: R21 Rash and other nonspecific skin eruption (principal); R58 Hemorrhage, not elsewhere classified
CPT/HCPCS: 36415; 85025; 85652; 86140

== ENCOUNTER → 2025-05-18 | Outpatient (CLI) | payer MEDICARE, OTHER, SELFPAY ==
--- NOTE | 2025-05-18 09:34 | CDU_ITS ---
Reason For Study Reason For Study: Bilateral ICA Stenosis Rt. Velocities/BP Lt. Velocities/BP Prox CCA 79.6/9.7 cm/sec. Prox CCA 80.9/19.5 cm/sec. Mid CCA 61.7/17.3 cm/sec. Mid CCA 68.6/19.5 cm/sec. Dist CCA 54.1/18.2 cm/sec. Dist CCA 58.2/16.6 cm/sec. Prox ICA 72.1/21.1 cm/sec. Prox ICA 41.7/11.1 cm/sec. Mid ICA 78.7/27.7 cm/sec. Mid ICA 94.3/24.6 cm/sec. Dist ICA 93.8/26.7 cm/sec. Dist ICA 78.7/20.4 cm/sec. Rt. ICA/CCA = 1.5. Lt. ICA/CCA = 1.4. Prox ECA 73.0/7.8 cm/sec. Prox ECA 53.8/6.8 cm/sec. Rt. Vert. 42.4/10.1 cm/sec. Lt. Vert. 39.3/11.0 cm/sec. Right Extracranial There is intimal thickening but no significant atherosclerotic plaque noted in the right common carotid artery. There is heterogeneous, irregular atherosclerotic plaque noted in the right internal carotid artery. There is intimal thickening but no significant atherosclerotic plaque noted in the right external carotid artery. Antegrade flow is noted in the right vertebral artery. Left Extracranial There is intimal thickening but no significant atherosclerotic plaque noted in the left common carotid artery. There is heterogeneous, irregular atherosclerotic plaque noted in the left internal carotid artery. There is intimal thickening but no significant atherosclerotic plaque noted in the left external carotid artery. Antegrade flow is noted in the left vertebral artery. VL/Carotid Duplex Ultrasound Interpretation Summary Mild (<50%) stenosis right extracranial internal carotid. Mild (<50%) stenosis left extracranial internal carotid. Patent and antegrade vertebrals bilaterally. Ordering Physician: Anil Stevenson Referring Physician: Anil Stevenson Performed By: Mert Fisher RVT
== END | disposition home or self-care (01) ==
LOC: CVS 09:33
PROVIDERS: PCP Family Medicine; Referring Provider Family Medicine; Visit Provider Family Medicine
DX: I65.23 Occlusion and stenosis of bilateral carotid arteries (principal)
CPT/HCPCS: 93880

== ENCOUNTER → 2025-05-20 | Outpatient (CLI) | payer MEDICARE, OTHER, SELFPAY ==
[2025-05-20 12:39] LABS: 24HR. Urine Creatinine 957.6 mg/24 hr (740.0-1540.0)
[2025-05-26 15:07] LABS: 5-HIAA, 24UR 5.0 mg/24 hr (0.0-14.9); 5-HIAA, UR 1.8 mg/L (Undefined); Metanephrine, Ur 25 ug/L (Undefined); Metanephrines, 24Ur 70 ug/24 hr (36-209); Normetanephrines, 24Ur 258 ug/24 hr (131-612); Normetanephrines, Ur 92 ug/L (Undefined)
== END | disposition home or self-care (01) ==
LOC: LAB 08:52 → LABSPEC 08:53
PROVIDERS: PCP Family Medicine; Referring Provider Family Medicine; Visit Provider Family Medicine
DX: R23.2 Flushing (principal)
CPT/HCPCS: 81050; 82384; 82570; 83497; 83835

== ENCOUNTER → 2025-07-26 | Outpatient (CLI) | payer MEDICARE, OTHER, SELFPAY ==
--- NOTE | 2025-07-26 12:39 | ECHOD_ITS ---
Reason For Study Reason For Study: Chest Pain Procedure This was a 2D Doppler, Color Flow transthoracic echocardiogram. The patient is in sinus rhythm. Exam performed in department. Left Ventricle Normal LV size. Left ventricular systolic function is normal. The left ventricular ejection fraction is 65 %. No regional wall motion abnormalities noted. Right Ventricle Normal RV size. Normal systolic function. Atria Normal left atrium. Normal right atrium. Mitral Valve Normal mitral valve. Tricuspid Valve Normal tricuspid valve. Mild (1+) tricuspid valve insufficiency. Pulmonary artery systolic pressure is 23 mmHg. Aortic Valve Normal aortic valve. Pulmonic Valve Normal pulmonic valve. Great Vessels Normal aortic root. The pulmonary artery is normal size. Inferior vena cava collapse with respiration. Pericardium/Pleural No pericardial effusion. MMode/2D Measurements & Calculations LVIDd: 4.2 cm IVSd: 0.85 cm Ao root diam: 3.0 cm LVIDs: 3.0 cm LVPWd: 0.78 cm RVDd: 3.5 cm FS: 28.8 % LAV(MOD-bp): 32.5 ml LVAd ap4: 17.4 cm2 SV(MOD-sp4): 27.0 ml LAV(MOD-bp) Indexed: 19.3 ml/m2 LVLd ap4: 6.0 cm SI(MOD-sp4): 16.0 ml/m2 LAV(MOD-sp2): 29.4 ml EDV(MOD-sp4): 42.4 ml LAV(MOD-sp4): 27.6 ml EDV(sp4-el): 42.8 ml LVAs ap4: 9.3 cm2 LVLs ap4: 5.0 cm ESV(MOD-sp4): 15.4 ml ESV(sp4-el): 14.6 ml EF(MOD-sp4): 63.7 % EF(sp4-el): 65.8 % SV(sp4-el): 28.2 ml LA A4 area: 13.0 cm2 LA dimension(2D): 3.0 cm RA A4 area: 7.5 cm2 TAPSE: 1.6 cm Time Measurements MV dec time: 0.21 sec Doppler Measurements & Calculations MV E max jose enrique: 63.5 cm/sec Lat Peak E' Jose Enrique: 7.6 cm/sec Med Peak E' Jose Enrique: 5.2 cm/sec MV A max jose enrique: 88.4 cm/sec E/E' lat: 8.3 E/E' med: 12.1 MV E/A: 0.72 MV V2 max: 103.9 cm/sec MV P1/2t max jose enrique: 71.8 cm/sec Ao V2 max: 171.1 cm/sec MV max P.3 mmHg MV P1/2t: 77.0 msec Ao max P.7 mmHg MV V2 mean: 51.7 cm/sec Ao V2 mean: 117.9 cm/sec MV mean P.3 mmHg MV dec slope: 273.1 cm/sec2 Ao mean P.4 mmHg MV V2 VTI: 25.6 cm MVA(P1/2t): 2.9 cm2 Ao V2 VTI: 36.0 cm AV (velocity ratio): 0.58 LV V1 max: 96.0 cm/sec PA V2 max: 92.6 cm/sec TR max jose enrique: 227.2 cm/sec LV V1 max P.7 mmHg TR max P.6 mmHg LV V1 mean P.5 mmHg LV V1 mean: 77.4 cm/sec LV V1 VTI: 21.0 cm ECHO/Echo Complete Interpretation Summary Normal LV size. Left ventricular systolic function is normal. The left ventricular ejection fraction is 65 %. Pulmonary artery systolic pressure is 23 mmHg. Ordering Physician: Eleuterio Cano Referring Physician: Eleuterio Cano Performed By: Jesse Luke RCS
== END | disposition home or self-care (01) ==
LOC: CVS 12:39
PROVIDERS: PCP Family Medicine; Referring Provider Internal Medicine Cardiovascular Disease; Visit Provider Internal Medicine Cardiovascular Disease
DX: I51.9 Heart disease, unspecified (principal)
CPT/HCPCS: 93306